=== PATIENT | female | born 1980 | race Caucasian/White ===

== ENCOUNTER 2020-09-01 10:54 | Outpatient (REF) | payer OTHER, SELFPAY | END 2020-09-01 10:55 | disposition home or self-care (01) | LOC: HO.LNP 10:54 | PROVIDERS: Visit Provider Family Medicine | DX: Z20.828 Contact with and (suspected) exposure to other viral communicable diseases (principal) | CPT/HCPCS: U0003 ==

== ENCOUNTER 2021-05-06 18:07 | Outpatient (REF) | payer OTHER, SELFPAY ==
[2021-05-06 18:09] LABS: Urine Cytology See Pathology rpt
[2021-05-06 18:28] LABS: Glucose Urine UA NEG (NEG); Leukocyte Esterase Urine NEG (NEG); Nitrite Urine NEG (NEG); PH 7.5 (5.0-8.0); Urine Blood TRACE (NEG); Urine Ketones NEG (NEG); Urine Protein NEG (NEG-TRACE)
[2021-05-06 18:31] LABS: Appearance Urine CLEAR; Color Urine YELLOW
[2021-05-06 19:01] LABS: Bacteria Urine 1+ /LPF; RBC Urine 0-2 /HPF (0); Squamous Epithelial Cell Urine 1+ /LPF; WBC Urine 0 /HPF (0-4)
== END 2021-05-06 18:08 | disposition home or self-care (01) ==
LOC: HO.LNP 18:07
PROVIDERS: Visit Provider Family Medicine
DX: R31.9 Hematuria, unspecified (principal)
CPT/HCPCS: 81001; 87086; 88112

== ENCOUNTER 2021-06-15 08:40 | Outpatient (REF) | payer OTHER, SELFPAY ==
--- NOTE | ~2021-06-15 | US_ITS ---
EXAMINATION: US RETROPERITONEAL LIMITED (RENAL ONLY) CLINICAL INFORMATION: Hematuria, unspecified. COMPARISON: Abdominal ultrasound of 08/24/2018. CT abdomen and pelvis 07/05/2017. TECHNIQUE: Real-time imaging of the kidneys. FINDINGS: RIGHT KIDNEY: 11.8 x 5.4 x 5.6 cm (SAG x AP x TRV). The kidney is normal in size, contour, and echogenicity. Renal cortical thickness is normal. No calculi or focal parenchymal lesions. No hydronephrosis. LEFT KIDNEY: 11.7 x 6.1 x 5.0 cm (SAG x AP x TRV). The kidney is normal in size, contour, and echogenicity. Renal cortical thickness is normal. No calculi or focal parenchymal lesions. No hydronephrosis. US/US renal BI IMPRESSION: Unremarkable renal ultrasound..
== END 2021-06-15 08:41 | disposition home or self-care (01) ==
LOC: HO.US 08:40
PROVIDERS: PCP Family Medicine; Visit Provider Family Medicine
DX: R31.9 Hematuria, unspecified (principal)
CPT/HCPCS: 76775

== ENCOUNTER 2021-07-08 07:31 | Outpatient (REF) | payer OTHER, SELFPAY ==
--- NOTE | ~2021-07-08 | CT_ITS ---
EXAMINATION: CT ABDOMEN AND PELVIS WITHOUT CONTRAST CLINICAL INFORMATION: Generalized abdominal pain and frequency of micturition. Rule out stones. COMPARISON: Ultrasound of June 15, [address] scan of July 05, 2017 TECHNIQUE: Multidetector volumetric imaging was performed from the superior aspect of the liver through the pubic symphysis. Sagittal and coronal reformatted images were obtained on the technologist's workstation. This CT examination was performed using dose optimization techniques as appropriate, variously including the following: *Automated exposure control *Adjustment of mA and/or kV according to patient size (this includes techniques or standardized protocols for targeted exams where dose is matched to indication/reason for exam; i.e. extremities or head) *Use of iterative reconstruction technique DLP: 607 mGy-cm FINDINGS: LUNG BASES: The visualized lung bases are unremarkable. No pleural or pericardial effusion. LIVER, GALLBLADDER, AND BILIARY TREE: The liver is normal in size, shape, and attenuation. No focal hepatic lesion or biliary ductal dilatation is present. Status post cholecystectomy. PANCREAS: Unremarkable. SPLEEN: Unremarkable. ADRENAL GLANDS: Unremarkable. 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 No hydronephrosis. No hydroureter. No renal or ureteral calculi identified. No suspicious right renal mass seen. 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 BLADDER: Unremarkable. GASTROINTESTINAL TRACT: No dilated loops of large or small bowel are evident. No free air or free fluid is identified. There is diverticulosis of the sigmoid colon without evidence of acute diverticulitis. The appendix is not visualized. No pericolonic inflammatory changes seen. ABDOMINAL WALL: No significant hernia is appreciated. LYMPH NODES: No lymphadenopathy appreciated. VASCULAR: Unremarkable. No abdominal aortic aneurysm. PELVIC VISCERA: Unremarkable. OSSEOUS STRUCTURES: Unremarkable. No suspicious destructive bony lesions. 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 No renal or ureteral calculi identified. Sigmoid diverticulosis without evidence of acute diverticulitis.
== END 2021-07-08 07:32 | disposition home or self-care (01) ==
LOC: HO.CT 07:31
PROVIDERS: PCP Family Medicine; Visit Provider Physician Assistant
DX: R10.84 Generalized abdominal pain (principal); R35.0 Frequency of micturition
CPT/HCPCS: 74176

== ENCOUNTER 2022-12-06 14:22 | Outpatient (REF) | payer OTHER, SELFPAY ==
[2022-12-06 14:51] LABS: Hematocrit 38.8 % (37.0-47.0); Hemoglobin 12.4 g/dl (12.0-16.0); Mean Corpuscular Hemoglobin 26.6 pg (27.0-33.0); Mean Corpuscular Volume 83.1 fL (80.0-98.0); Mean Platelet Volume 9.4 fL (9.4-12.3); Platelet Count 402 X10*3/uL (160-400); Red Blood Count 4.67 X10*6/uL (4.20-5.50); Red Cell Distribution Width 15.9 % (11.0-16.0); White Blood Count 11.2 X10*3/uL (4.8-10.8)
[2022-12-06 15:34] LABS: Alanine Aminotransferase 16 U/L (0-31); Albumin Level 4.3 g/dL (3.5-5.0); Alkaline Phosphatase 59 U/L (39-117); Aspartate Amino Transferase 15 U/L (5-31); Bilirubin Direct < 0.2 mg/dL (0.0-0.5); Bilirubin Total 0.3 mg/dL (0.0-1.0); Lipase 47 U/L (8-78); Total Protein 7.1 g/dL (6.5-8.0)
== END 2022-12-06 14:23 | disposition home or self-care (01) ==
LOC: HO.LAB 14:22
PROVIDERS: PCP Family Medicine; Visit Provider Internal Medicine Gastroenterology
DX: R10.11 Right upper quadrant pain (principal); R74.8 Abnormal levels of other serum enzymes
CPT/HCPCS: 36415; 80076; 83690; 85027

== ENCOUNTER 2022-12-22 07:05 | Outpatient (REF) | payer OTHER, SELFPAY ==
[2022-12-22 11:27] LABS: MANUAL DIFF FLAG NO
[2022-12-22 11:43] LABS: Appearance Urine Cloudy; Color Urine Yellow; Glucose Urine UA Negative (Negative); Leukocyte Esterase Urine Negative (Negative); Nitrite Urine Negative (Negative); Specific Gravity - Urine 1.015 (1.005-1.025); Urine Blood Negative (Negative); Urine Ketones Negative (Negative); Urine Protein Negative (Neg-Trace)
[2022-12-22 11:54] LABS: Basophils Absolute Auto 0.1 X10*3/uL (0.0-0.2); Basophils Percent Auto 0.5 % (0-2); Eosinophils Absolute Auto 0.1 X10*3/uL (0.0-0.4); Eosinophils Percent Auto 0.9 % (0-4); Hematocrit 38.9 % (37.0-47.0); Hemoglobin 12.1 g/dl (12.0-16.0); Imm Gran Abs Auto 0.04 X10*3/uL (0.00-0.03); Imm Gran Pct Auto 0.4 % (0.0-0.4); Lymphocytes Absolute Auto 3.4 X10*3/uL (1.2-4.9); Lymphocytes Percent Auto 33.1 % (20-40); Mean Corpuscular HGB Conc 31.1 g/dl (31.0-35.0); Mean Corpuscular Hemoglobin 26.1 pg (27.0-33.0); Mean Corpuscular Volume 83.8 fL (80.0-98.0); Mean Platelet Volume 9.9 fL (9.4-12.3); Monocytes Absolute Auto 0.6 X10*3/uL (0.1-1.2); Monocytes Percent Auto 5.8 % (2-11); Neutrophils Absolute Auto 6.1 x10*3/uL (2.0-8.3); Neutrophils Percent Auto 59.3 % (45-73); Platelet Count 398 X10*3/uL (160-400); Red Blood Count 4.64 X10*6/uL (4.20-5.50); White Blood Count 10.3 X10*3/uL (4.8-10.8)
[2022-12-22 12:29] LABS: Creatinine Urine 123.88 mg/dL; Microalbumin Urine < 5.0 mg/L
[2022-12-22 12:38] LABS: Alanine Aminotransferase 23 U/L (0-31); Albumin Level 3.7 g/dL (3.5-5.0); Alkaline Phosphatase 55 U/L (39-117); Anion Gap 11 (12-20); Aspartate Amino Transferase 13 U/L (5-31); Bilirubin Total 0.2 mg/dL (0.0-1.0); Blood Urea Nitrogen 11 mg/dL (9-16); Calcium 8.5 mg/dL (8.4-10.2); Carbon Dioxide 24 mmol/L (22-29); Chloride 109 mmol/L (96-108); Cholesterol 212 mg/dL; Estimated Glomerular Filt Rate > 60; Glucose Fasting 85 mg/dL (60-99); Glucose Random 85 mg/dL (60-115); HDL Cholesterol 59 mg/dL; LDL Cholesterol Calculated 135 mg/dl; Lipase 30 U/L (8-78); Potassium 4.2 mmol/L (3.3-5.1); Sodium 140 mmol/L (135-145); Total Protein 6.1 g/dL (6.5-8.0); Triglycerides 93 mg/dL
[2022-12-22 12:46] LABS: Free T4 (Free Thyroxine) 0.83 ng/dL (0.71-1.85); Thyroid Stimulating Hormone 2.12 uIU/mL (0.32-4.0)
[2022-12-24 07:34] LABS: Triiodothyronine T3 Total 86 ng/dL (76-181)
== END 2022-12-22 07:06 | disposition home or self-care (01) ==
LOC: HO.WFDLDS 07:05
PROVIDERS: Visit Provider Family Medicine
DX: Z00.00 Encounter for general adult medical examination without abnormal findings (principal); R74.8 Abnormal levels of other serum enzymes; I10 Essential (primary) hypertension; E03.9 Hypothyroidism, unspecified
CPT/HCPCS: 36415; 80053; 80061; 81003; 82043; 83690; 84439; 84443; 84480; 85025

== ENCOUNTER 2023-04-14 14:29 | Outpatient (AMB) | payer OTHER, SELFPAY ==
[2023-04-14 14:30] VITALS: BP 96/58; PULSE 83; O2SAT 99
--- NOTE | 2023-04-14 14:30 | A.OFFPC_ITS ---
Vital Signs 04/14/23 14:30 Weight 207 lb BP 96/58 L Blood Pressure Location Lt brachial Position Sitting Pulse 83 Pulse Source Pulse Oximeter Pulse Oximetry (%) 99 Oxygen Delivery Method Room Air Intake Visit Reasons: f/u anxiety and chronic conditions Intake Note: Patient is here for follow up on Clonozepam, and other chronic conditions. Allergies nitrofurantoin [From MACROBID] Allergy (Severe, Verified 04/14/23 14:34) THROAT SWELLING, DIFF BREATHING, HIVES fluconazole [From DIFLUCAN] Allergy (Unknown, Verified 04/14/23 14:34) HIVES Medication List - Last Reconciled 04/14/23 by Esteban Horton MD albuterol sulfate 90 mcg/actuation (ProAir HFA) 2 puffs inhalation Q4-6H PRN albuterol sulfate mg inhalation Q4H PRN azelastine 1 spray intranasal BID budesonide-formoterol 160-4.5 mcg/actuation 2 puffs inhalation BID buspirone 5 mg PO BID 30 days citalopram 40 mg PO DAILY clonazepam 0.75 mg (1.5 x 0.5 mg) PO DAILY 30 days levothyroxine 50 mcg PO QAM 90 days montelukast 10 mg PO DAILY 30 days prednisone 20 mg PO DAILY pyridostigmine bromide ER 180 mg PO BID tiotropium bromide 1.25 mcg/actuation (Spiriva Respimat) 2 puffs inhalation DAILY valacyclovir (Valtrex) 500 mg PO Q12H 10 days Tobacco use date assessed: 12/09/22 Dental Screening Dental Screen Date: 04/14/23 Did you have a dental visit in the last 12 months?: Yes Did you have a dental problem in the last 6 months where you did not have access to dental care?: No Was dental information given to patient?: No HPI f/u anxiety and chronic conditions HPI Details 43 y/o female presents to f/u anxiety and chronic conditions. Had increased her clonazepam last office visit. She is also on citalopram 40mg daily. She reports medication regimen has been helping for her anxiety. She does note increased anxiety that coincides with steroid use. Pt reports some dizziness. Pt reports significant fatigue likely secondary to steroid use. 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 Cognitive needs: No Hearing needs: No Vision needs: No Questionnaire Thrive Questionnaire Date Thrive assessed: 03/02/22 NALINI-7 AMB Questionnaire NALINI-7 Date NALINI - 7 assessed: 04/14/23 Feeling nervous, anxious, or on edge: 0 = Not at all Not being able to stop or control worryin = Nearly every day Worrying too much about different things: 3 = Nearly every day Trouble relaxin = Nearly every day Being so restless that it is hard to sit still: 0 = Not at all Becoming easily annoyed or irritable: 3 = Nearly every day Feeling afraid as if something awful might happen: 1 = Several days Total NALINI-7 score (0-4 normal; 5-9 mild; 10-14 moderate; 15-21 severe): 13 Source: Developed by Drs. Arthur Zamora, Margie Gunn, Mello Lewis and colleagues, with an educational kyra from [employer] Review of Systems Const Denies chills, Denies fatigue, Denies fever(s), Denies headache(s) and Denies weakness ENT Denies dizziness and Denies headache(s) Card Denies chest pain, Denies lightheadedness, Denies dyspnea and Denies other (Palpitations) Resp Denies cough, Denies dyspnea, Denies wheezing and Denies other ( shortness of breath) Musc Denies numbness and Denies tingling Neuro Denies dizziness, Denies headache(s), Denies numbness, Denies tingling, Denies paresthesias and Denies weakness Psych Denies anxiety and Denies depression Endo Denies fatigue Aller/Immun Denies wheezing Physical exam (Primary Care) Vital Signs: Last Vital Signs Pulse 83 04/14/23 14:30 BP 96/58 L 04/14/23 14:30 Pulse Ox 99 04/14/23 14:30 Oxygen Delivery Method Room Air 04/14/23 14:30 Tobacco/Smoking Status: Tobacco use Status Tobacco use date assessed 12/09/22 04/14/23 14:42 Patient Tobacco Use Status Former Tobacco user 04/14/23 14:42 Tobacco use type Cigarette 04/14/23 14:42 e-Cigarette/Vaping Use Never Used 04/14/23 14:42 Thrive Assessment: Date of Thrive Assessment Date Thrive assessed 03/02/22 04/14/23 14:42 Const General: no acute distress and well developed Nutritional Appearance: well nourished Orientation/consciousness: patient oriented x3 HENMT Head: Yes normocephalic and Yes atraumatic Eyes General: appearance normal, both eyes and all related structures Pupils: Equal, round and reactive pupils present EOM: EOMs intact bilaterally Resp Effort & Inspection: normal respiratory effort Auscultation: clear to auscultation bilaterally Cardio Rate: regular rate Rhythm: regular rhythm Heart sounds: S1 normal heart sound present, S2 normal heart sound present, no gallops, no murmurs and no rubs Neuro General: patient oriented x3 and gait normal Cranial nerves: Yes Equal, round and reactive pupils present Psych Affect: normal affect Assessment and Plan Assessment & Plan (1) Anxiety: Code(s): F41.9 - Anxiety disorder, unspecified Plan: Some increased anxiety that she notes coincides with steroid use She feels that her citalopram and clonazepam regimen are effective No medication changes; continue current medication regimen for anxiety Jitteriness and anxiety associated with steroid use should resolve when she can discontinue it (2) Shortness of breath: Code(s): R06.02 - Shortness of breath Plan: Continue inhaled medication regimen and currently on prednisone Lungs clear today No changes to her regimen Avoid triggers/allergens (3) Allergies: Code(s): T78.40XA - Allergy, unspecified, initial encounter Plan: Continue using mask outdoors and continue air conditioning; change filter frequently Can try hep a filtration as well (4) Fatigue: Code(s): R53.83 - Other fatigue Plan: Likely secondary to steroid use She is also somewhat dehydrated today; increase hydration Plan Mildly hypotensive today and a little bit orthostatic due to dehydration secondary to steroid use Increase hydration and salt/sodium Coding Level of Care Code Est Pt Level 4 (05205) Diagnoses Anxiety F41.9 Shortness of breath R06.02 Allergies T78.40XA Fatigue R53.83
== END 2023-04-14 15:05 | disposition home or self-care (01) ==
PROVIDERS: PCP Family Medicine; Visit Provider Family Medicine
DX: F41.9 Anxiety disorder, unspecified (principal); R06.02 Shortness of breath; T78.40XA Allergy, unspecified, initial encounter; R53.83 Other fatigue
CPT/HCPCS: 99214

== ENCOUNTER 2023-08-10 08:00 | Outpatient (REF) | payer OTHER, SELFPAY ==
[2023-08-10 11:22] LABS: MANUAL DIFF FLAG NO
[2023-08-10 11:25] LABS: Appearance Urine Clear; Color Urine Yellow; Glucose Urine UA Negative (Negative); Leukocyte Esterase Urine Negative (Negative); Nitrite Urine Negative (Negative); Urine Blood Negative (Negative); Urine Ketones Negative (Negative); Urine Protein Negative (Neg-Trace)
[2023-08-10 11:50] LABS: Alanine Aminotransferase 11 U/L (0-31); Albumin Level 3.8 g/dL (3.5-5.0); Alkaline Phosphatase 69 U/L (39-117); Anion Gap 8 (12-20); Aspartate Amino Transferase 15 U/L (5-31); Bilirubin Total 0.2 mg/dL (0.0-1.0); Blood Urea Nitrogen 8 mg/dL (9-16); Calcium 8.8 mg/dL (8.4-10.2); Carbon Dioxide 28 mmol/L (22-29); Chloride 107 mmol/L (96-108); Cholesterol 201 mg/dL (<200); Estimated Glomerular Filt Rate > 60; Glucose Fasting 103 mg/dL (60-99); HDL Cholesterol 50 mg/dL (>40); LDL Cholesterol Calculated 138 mg/dL (<100); Lipase 26 U/L (8-78); Potassium 4.4 mmol/L (3.3-5.1); Sodium 139 mmol/L (135-145); Total Protein 6.8 g/dL (6.5-8.0); Triglycerides 67 mg/dL (<150)
[2023-08-10 11:51] LABS: Rheumatoid Factor < 13.0 IU/mL (<15.0)
[2023-08-10 12:05] LABS: Free T4 (Free Thyroxine) 0.83 ng/dL (0.71-1.85)
[2023-08-10 12:08] LABS: Basophils Absolute Auto 0.1 X10*3/uL (0.0-0.2); Eosinophils Absolute Auto 0.1 X10*3/uL (0.0-0.4); Eosinophils Percent Auto 2.5 % (0-4); Hematocrit 39.4 % (37.0-47.0); Hemoglobin 12.6 g/dl (12.0-16.0); Lymphocytes Absolute Auto 1.6 X10*3/uL (1.2-4.9); Lymphocytes Percent Auto 30.4 % (20-40); Mean Corpuscular Hemoglobin 26.7 pg (27.0-33.0); Mean Corpuscular Volume 83.5 fL (80.0-98.0); Mean Platelet Volume 10.5 fL (9.4-12.3); Monocytes Absolute Auto 0.3 X10*3/uL (0.1-1.2); Monocytes Percent Auto 6.6 % (2-11); Neutrophils Absolute Auto 3.1 x10*3/uL (2.0-8.3); Neutrophils Percent Auto 59.5 % (45-73); Platelet Count 305 X10*3/uL (160-400); Red Blood Count 4.72 X10*6/uL (4.20-5.50); Red Cell Distribution Width 15.6 % (11.0-16.0); White Blood Count 5.2 X10*3/uL (4.8-10.8)
[2023-08-10 12:15] LABS: Thyroid Stimulating Hormone 2.45 uIU/mL (0.32-4.0)
[2023-08-10 12:25] LABS: Creatinine Urine 48.91 mg/dL; Microalbumin Urine < 5.0 mg/L
[2023-08-10 12:36] LABS: Erythrocyte Sedimentation Rate 11 MM/HR (0-20)
[2023-08-12 04:54] LABS: Triiodothyronine T3 Total 93 ng/dL (76-181)
[2023-08-12 13:08] LABS: CRP High Sensitivity 4.4 mg/L
[2023-08-15 12:57] LABS: Anti Nuclear Antibody Screen NEGATIVE (NEGATIVE)
== END 2023-08-10 08:01 | disposition home or self-care (01) ==
LOC: HO.WFDLDS 08:00
PROVIDERS: Visit Provider Family Medicine
DX: Z00.00 Encounter for general adult medical examination without abnormal findings (principal); E55.9 Vitamin D deficiency, unspecified; R74.8 Abnormal levels of other serum enzymes; D47.09 Other mast cell neoplasms of uncertain behavior; R53.83 Other fatigue; E03.9 Hypothyroidism, unspecified; I10 Essential (primary) hypertension
CPT/HCPCS: 36415; 80053; 80061; 81003; 82043; 82306; 82570; 83690; 84439; 84443; 84480; 85025; 85652; 86038; 86141; 86431

== ENCOUNTER 2023-09-23 14:02 | Outpatient (AMB) | payer OTHER, SELFPAY ==
--- NOTE | 2023-09-23 14:19 | MHC.PC.OV ---
Vital Signs 09/23/23 14:21 Height 5 ft 5 in Weight 195 lb 2 oz BMI 32.5 BP 110/60 Blood Pressure Location Lt brachial Position Sitting Pulse 94 Pulse Source Pulse Oximeter Pulse Oximetry (%) 98 Oxygen Delivery Method Room Air Intake Visit Reasons: CPE with f/u labs and health maintenance Intake Note: Patient is here for her physical today and to follow up on labs. Allergies nitrofurantoin [From MACROBID] Allergy (Severe, Verified 09/23/23 14:23) THROAT SWELLING, DIFF BREATHING, HIVES fluconazole [From DIFLUCAN] Allergy (Unknown, Verified 09/23/23 14:23) HIVES Tobacco use date assessed: 12/09/22 HPI CPE with f/u labs and health maintenance HPI Details 43 y/o female presents for a CPE with f/u labs and health maintenance. Labs were drawn 08/10/23. Reviewed labs with pt. Elevated fasting glucose of 103. TC 201. LDL 138. HDL 50. Triglycerides 67. Urine studies are fine. She states she has been watching the sugars and starches in her diet. 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 Arthur Zamora, Margie Gunn, Mello Lewis and colleagues, with an educational kyra from [employer]. Review of Systems Const Denies chills, Denies fatigue, Denies fever(s), Denies headache(s) and Denies weakness Eyes Denies change in vision ENT Denies dizziness, Denies headache(s), Denies hearing loss, Denies nasal congestion, Denies sinus pain, Denies sinus pressure and Denies sore throat Card Denies chest pain, Denies lightheadedness, Denies dyspnea and Denies other (palpitations) Resp Denies cough, Denies dyspnea and Denies wheezing GI Denies abdominal pain, Denies melena, Denies hematochezia, Denies change in bowel habits, Denies dyspepsia and Denies nausea Denies hematuria and Denies dysuria Musc Denies abnormal gait, Denies myalgias, Denies arthralgias, Denies numbness and Denies tingling Skin/Breast Denies rash, Denies unusual bruising and Denies wounds Neuro Denies abnormal gait, Denies dizziness, Denies headache(s), Denies memory loss, Denies numbness, Denies Sensory deficit (Neuro), Denies tingling and Denies weakness Psych Denies anxiety, Denies depression and Denies memory loss Endo Denies cold intolerance, Denies fatigue, Denies heat intolerance, Denies polydipsia and Denies polyuria Peña/Lymph Denies easy bleeding and Denies easy bruising Aller/Immun Denies wheezing Physical exam (Primary Care) Vital Signs: Last Vital Signs Pulse 94 09/23/23 14:21 BP 110/60 09/23/23 14:21 Pulse Ox 98 09/23/23 14:21 Oxygen Delivery Method Room Air 09/23/23 14:21 BMI result Body Mass Index 32.5 Tobacco/Smoking Status: Tobacco use Status Tobacco use date assessed 12/09/22 09/23/23 14:22 Patient Tobacco Use Status Former Tobacco user 09/23/23 14:22 Tobacco use type Cigarette 09/23/23 14:22 e-Cigarette/Vaping Use Never Used 09/23/23 14:22 Thrive Assessment: Date of Thrive Assessment Date Thrive assessed 03/02/22 09/23/23 14:22 Const General: no acute distress, well developed, alert and awake Nutritional Appearance: well nourished Orientation/consciousness: patient oriented x3 HENMT Head: Yes normocephalic and Yes atraumatic Ears: hearing grossly normal bilaterally and TM's normal bilaterally General nose exam: Normal external nose present and Normal nares present Mouth: Normal oral and palatal mucosa present and moist mucous membranes Teeth and gingiva: dentition normal Throat: Yes posterior oropharynx normal Eyes General: appearance normal, both eyes and all related structures Pupils: Equal, round and reactive pupils present and Pupil accommodation reflex normal EOM: EOMs intact bilaterally Neck Neck: Yes normal visual inspection, Yes no lymphadenopathy and Yes trachea midline Thyroid: Thyroid normal Carotids: no bruits Lymphatic: no lymphadenopathy noted Chest Chest palpation & inspection: normal inspection of the chest Resp Effort & Inspection: normal respiratory effort Auscultation: clear to auscultation bilaterally Cardio Rate: regular rate Rhythm: regular rhythm Heart sounds: S1 normal heart sound present, S2 normal heart sound present, no gallops, no murmurs and no rubs Bruits: no abdominal aortic bruits and no carotid bruits GI Palpation (GI): No Abdominal aortic bruit present, Soft to palpation, nontender, No hepatosplenomegaly present and No Rebound tenderness present Auscultation: normal bowel sounds General: Yes no CVA tenderness Back/Spine/Pelvis Back: no CVA tenderness Cervical Spine: cervical ROM normal and No Cervical spine tenderness Thoracic/Lumbar Spine: thoraco-lumbar ROM normal, No pain with thoraco-lumbar ROM, No thoracic spinal tenderness and No lumbar spinal tenderness Skin Lesions: no lesions Rashes: no rashes Trauma: no lacerations or abrasions Wounds: no wounds Nails: normal Neuro General: patient oriented x3 Cranial nerves: Yes Equal, round and reactive pupils present Cognition (Neuro): normal cognition Gait exam (Neuro): Normal gait present Motor exam (neuro): 5/5 motor strength present throughout Sensory Exam: No Sensory deficit (Neuro) Deep tendon reflexes (DTR's): Right patellar reflex intensity grade: 2+ and Left patellar reflex intensity grade: 2+ Extrem General: Yes normal to inspection and No edema Psych Appearance: grossly normal Affect: normal affect Attitude: cooperative Thought process: Normal thought process present Assessment and Plan Assessment & Plan (1) Adult general medical exam: Code(s): Z00.00 - Encounter for general adult medical examination without abnormal findings Plan: 43-year-old?female?presents?for?complete?physical?exam Encouraged?healthy?diet?with?active?lifestyle?and?plenty?of?exercise (2) Asthma: Code(s): J45.909 - Unspecified asthma, uncomplicated Plan: Mild?wheeze?on?exam.??She?has?not?been?taking?her?controlling?medications. Encouraged?her?to?resume?controller?medications?she?agrees. (3) Elevated fasting glucose: Code(s): R73.01 - Impaired fasting glucose Plan: Mildly?elevated?fasting?blood?sugar. We?can?repeat?this?at?her?next?blood?draw (4) Anxiety: Code(s): F41.9 - Anxiety disorder, unspecified Plan: Patient?notes?improved?control?recently?but?also?increased?stressors.??She?is?taking?citalopram?and?clonazepam?as?prescribed Continue?current?medication Follow-up?with?therapist?as?recommended Will?follow-up?here?in?about?3?months (5) Screening for cervical cancer: Code(s): Z12.4 - Encounter for screening for malignant neoplasm of cervix Plan: Followed?by?safety and health consultant?and?up-to-date. (6) Breast cancer screening by mammogram: Code(s): Z12.31 - Encounter for screening mammogram for malignant neoplasm of breast Plan: Managed?by?her?safety and health consultant?at?[facility].??I?asked?her?to?have?report?forwarded?to?me. (7) Screening for colon cancer: Code(s): Z12.11 - Encounter for screening for malignant neoplasm of colon Plan: Followed?by?Gastroenterology?at?[facility]. Will?request?note Medications: Refilled citalopram 40 mg PO DAILY 90 tabs 2RF clonazepam [facility] verified. Partial refill upon request. 0.75 mg (1.5 x 0.5 mg) PO DAILY 45 tabs 0RF 30 days Coding Level of Care Code Est Pt Level 3 (23820) Est Pt Prev Care 40-64y(44201) Diagnoses Adult general medical exam Z00.00 Asthma J45.909 Elevated fasting glucose R73.01 Anxiety F41.9 Screening for cervical cancer Z12.4 Breast cancer screening by mammogram Z12.31 Screening for colon cancer Z12.11
[2023-09-23 14:21] VITALS: BP 110/60; PULSE 94; O2SAT 98; BMI 32.5
== END 2023-09-23 15:35 | disposition home or self-care (01) ==
PROVIDERS: PCP Family Medicine; Visit Provider Family Medicine
DX: Z00.00 Encounter for general adult medical examination without abnormal findings (principal); J45.909 Unspecified asthma, uncomplicated; R73.01 Impaired fasting glucose; F41.9 Anxiety disorder, unspecified; Z12.4 Encounter for screening for malignant neoplasm of cervix; Z12.31 Encounter for screening mammogram for malignant neoplasm of breast; Z12.11 Encounter for screening for malignant neoplasm of colon
CPT/HCPCS: 99213; 99396

== ENCOUNTER 2023-12-16 11:35 | Outpatient (AMB) | payer OTHER, SELFPAY ==
[2023-12-16 11:38] VITALS: BP 102/58; PULSE 91; O2SAT 98; BMI 32.4
--- NOTE | 2023-12-16 11:38 | A.OFFPC_ITS ---
Vital Signs 12/16/23 11:38 Height 5 ft 5 in Weight 194 lb 8 oz BMI 32.4 BP 102/58 L Pulse 91 Pulse Source Pulse Oximeter Pulse Oximetry (%) 98 Oxygen Delivery Method Room Air Intake Visit Reasons: f/u anxiety, asthma Intake Note: Patient is here to follow up on anxiety and asthma. Allergies nitrofurantoin [From MACROBID] Allergy (Severe, Verified 12/16/23 11:41) THROAT SWELLING, DIFF BREATHING, HIVES fluconazole [From DIFLUCAN] Allergy (Unknown, Verified 12/16/23 11:41) HIVES Medication List - Last Reconciled 12/16/23 by Esteban Horton MD albuterol sulfate mg inhalation Q4H PRN albuterol sulfate 90 mcg/actuation (ProAir HFA) 2 puffs inhalation Q4-6H PRN azelastine 1 spray intranasal BID budesonide-formoterol 160-4.5 mcg/actuation 2 puffs inhalation BID citalopram 40 mg PO DAILY clonazepam 0.75 mg (1.5 x 0.5 mg) PO DAILY 30 days levothyroxine 50 mcg PO QAM 90 days montelukast 10 mg PO DAILY 30 days pyridostigmine bromide ER 180 mg PO BID tiotropium bromide 1.25 mcg/actuation (Spiriva Respimat) 2 puffs inhalation DAILY valacyclovir (Valtrex) 500 mg PO Q12H 10 days Tobacco use date assessed: 12/16/23 Dental Screening Dental Screen Date: 12/16/23 Did you have a dental visit in the last 12 months?: Yes Did you have a dental problem in the last 6 months where you did not have access to dental care?: No Was dental information given to patient?: Patient has dentist HPI f/u anxiety, asthma HPI Details 43 y/o female presents to [facility] PHQ-9 12, NALINI-7 16 today. Pt notes ongoing anxiety but states she is able to work through this. She continues seeing her therapist and taking her medications. She has started walking for exercise. 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 1. Little interest or pleasure in doing things: not at all 2. Feeling down, depressed, or hopeless: not at all 3. Trouble falling or staying asleep, or sleeping too much: nearly every day 4. Feeling tired or having little energy: nearly every day 5. Poor appetite or overeating: nearly every day 6. Feeling bad about yourself - or that you are a failure or have let yourself or your family down: not at all 7. Trouble concentrating on things, such as reading the newspaper or watching television: nearly every day 8. Moving or speaking so slowly that other people could have noticed. Or the opposite - being so fidgety or restless that you have been moving around a lot more than usual: not at all 9. Thoughts that you would be better off or of hurting yourself in some way: not at all Total score: 12 Depression Screening Interpretation: Positive Depression Screening Follow-up: In treatment Depression Screening Done: Yes 58455 - PHQ-9 Billing: Yes Source: Developed by Drs. Arthur Zamora, Margie Gunn, Mello Lewis and colleagues, with an educational kyra from [employer]. Thrive Questionnaire Date Thrive assessed: 12/16/23 I am a: Patient What is your living situation today?: I have a steady place to live Within the past 12 months, did the food you bought not last and you didn't have the money to get more?: Never true Within the past 12 months, did you worry whether your food would run out before you got money to buy more?: Never true Do you have trouble paying for medicines?: No Do you have trouble getting transportation to medical appointments?: No Do you have trouble paying your heating and electricity bill?: No Do you have trouble taking care of your child, family member or friend?: No Do you have trouble with day-to-day activities such as bathing, preparing meals, shopping, managing finances, etc.?: Yes Are you currently unemployed and looking for a job?: No Are you interested in more education?: No THRIVE Score: 0 AUDIT C Alcohol Use Questionnaire (AUDIT-C) 1. How often do you have a drink containing alcohol?: Never 3. How often do you have six or more drinks on one occasion?: Never Total Score: 0 NALINI-7 AMB Questionnaire NALINI-7 Date NALINI - 7 assessed: 12/16/23 Feeling nervous, anxious, or on edge: 3 = Nearly every day Not being able to stop or control worryin = Nearly every day Worrying too much about different things: 3 = Nearly every day Trouble relaxin = Nearly every day Being so restless that it is hard to sit still: 2 = More than half the days Becoming easily annoyed or irritable: 2 = More than half the days Feeling afraid as if something awful might happen: 0 = Not at all Total NALINI-7 score (0-4 normal; 5-9 mild; 10-14 moderate; 15-21 severe): 16 Source: Developed by Drs. Arthur Zamora, Margie Gunn, Mello Lewis and colleagues, with an educational kyra from [employer]. NALINI-7 Assessment Billing NALINI-7 Assessment Tool: NALINI-7 Assessment 33274 ACT Questionnaire In the past 4 weeks, how much of the time did your asthma keep you from getting as much done at work, school or at home?: Some of the time During the past 4 weeks, how often have you had shortness of breath?: Once a day During the past 4 weeks, how often did your asthma symptoms wake you up at night or earlier than usual in the morning?: 2-3 nights a week During the past 4 weeks, how often have you had to use your rescue inhaler or nebulizer medication?: More than 3 times per day (daily) How would you rate your asthma control during the past 4 weeks?: Somewhat controlled Score: 11 Review of Systems Const Denies chills, Denies fatigue, Denies fever(s), Denies headache(s) and Denies weakness ENT Denies dizziness and Denies headache(s) Card Denies dyspnea Resp Denies cough, Denies dyspnea, Denies wheezing and Denies other (shortness of breath) Musc Denies numbness and Denies tingling Neuro Denies dizziness, Denies headache(s), Denies numbness, Denies tingling and Denies weakness Psych Reports anxiety and Reports depression Endo Denies fatigue Aller/Immun Denies wheezing Physical exam (Primary Care) Vital Signs: Last Vital Signs Pulse 91 12/16/23 11:38 BP 102/58 L 12/16/23 11:38 Pulse Ox 98 12/16/23 11:38 Oxygen Delivery Method Room Air 12/16/23 11:38 BMI result Body Mass Index 32.4 Tobacco/Smoking Status: Tobacco use Status Tobacco use date assessed 12/16/23 12/16/23 12:48 Patient Tobacco Use Status Former Tobacco user 12/16/23 12:48 Tobacco use type Cigarette 12/16/23 12:48 e-Cigarette/Vaping Use Never Used 12/16/23 12:48 PHQ-9: PHQ-9 Score PHQ-9: Total score 12 12/16/23 12:48 Depression Screening Interpretation: Positive Depression Screening Follow-up: In treatment Thrive Assessment: Date of Thrive Assessment Date Thrive assessed 12/16/23 12/16/23 12:48 Const General: well developed; No acute distress Nutritional Appearance: well nourished Orientation/consciousness: patient oriented [facility]3 [facility] Head: Yes normocephalic and Yes atraumatic Eyes General: appearance normal, both eyes and all related structures Pupils: Equal, round and reactive pupils present EOM: EOMs intact bilaterally Resp Effort & Inspection: normal respiratory effort Auscultation: clear to auscultation bilaterally Cardio Rate: regular rate Rhythm: regular rhythm Heart sounds: S1 normal heart sound present, S2 normal heart sound present, no gallops, no murmurs and no rubs Neuro General: patient oriented x3 and gait normal Cranial nerves: Yes Equal, round and reactive pupils present Psych Affect: normal affect Assessment and Plan Assessment & Plan (1) Depression with anxiety: Code(s): F41.8 - Other specified anxiety disorders Plan: Increased?stressors?due?to?inability?to?work?and?difficulty?with?finances. Offered?to?have?nurse?navigator?look?in?to?available?services?but?she?says?she?i s?already?doing?this?with?her?therapist. She?declined?any?medication?changes Continue?current?medications?and?follow-up?with?therapist (2) Asthma: Code(s): J45.909 - Unspecified asthma, uncomplicated Plan: Lungs?are?much?improved?since?last?visit. She?had?been?given?couple?of?rounds?of?prednisone?by?her?orthopaedic physician assistant Continue?controller?medication?and?use?albuterol?as?needed Medications: Refilled clonazepam [facility] verified. Partial refill upon request. 0.75 mg (1.5 x 0.5 mg) PO DAILY 45 tabs 0RF 30 days citalopram 40 mg PO DAILY 90 tabs 2RF Discontinued buspirone Discontinued Reason: Doctor's Order 5 mg PO BID 30 days 60 tabs 0RF Coding Level of Care Code Est Pt Level 3 (62926) Diagnoses Depression with anxiety F41.8 Asthma J45.909 Additional Codes NALINI-7 Assessment Billing - NALINI-7 Assessment Tool: NALINI-7 Assessment 21732 ([id number])
== END 2023-12-16 13:03 | disposition home or self-care (01) ==
PROVIDERS: PCP Family Medicine; Visit Provider Family Medicine
DX: J45.909 Unspecified asthma, uncomplicated (principal); F41.8 Other specified anxiety disorders
CPT/HCPCS: 99213

== ENCOUNTER 2024-04-26 12:31 | Outpatient (AMB) | payer OTHER, SELFPAY ==
--- NOTE | 2024-04-26 12:37 | MHC.PC.OV ---
Vital Signs 04/26/24 12:45 Height 5 ft 5 in Weight 182 lb BMI 30.3 BP 100/66 Blood Pressure Location Lt brachial Position Sitting Pulse 78 Pulse Source Pulse Oximeter Pulse Oximetry (%) 96 Oxygen Delivery Method Room Air Intake Visit Reasons: eval for possible listeria Intake Note: Patient started feeling sick- patient reports she had turkey from the deli and thinks it may be listeria due to a recall. Patient reports feeling nauseous, vomiting, and diarrhea. Technician Automated Equipment Required: No Accompanied by: Daughter Allergies nitrofurantoin [From MACROBID] Allergy (Severe, Verified 04/26/24 12:51) THROAT SWELLING, DIFF BREATHING, HIVES fluconazole [From DIFLUCAN] Allergy (Unknown, Verified 04/26/24 12:51) HIVES Tobacco use date assessed: 12/16/23 Dental Screening Dental Screen Date: 12/16/23 HPI eval for possible listeria HPI Details 44 y/o female presents today with complaints of nausea, vomiting and diarrhea. She reports she had turkey from a deli and questions listeria due to a recall. Has been using protein shakes and liquid diet. She notes she is feeling improved. She reports significant anxiety. 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 Arthur Zamora, Margie Gunn, Mello Lewis and colleagues, with an educational kyra from [employer]. Review of Systems Const Denies chills, Denies fatigue, Denies fever(s), Denies headache(s) and Denies weakness ENT Denies dizziness and Denies headache(s) Card Denies dyspnea Resp Denies cough, Denies dyspnea, Denies wheezing and Denies other (shortness of breath) GI Reports diarrhea, Reports nausea and Reports vomiting Musc Denies numbness and Denies tingling Neuro Denies dizziness, Denies headache(s), Denies numbness, Denies tingling and Denies weakness Psych Reports anxiety Endo Denies fatigue Aller/Immun Denies wheezing Physical exam (Primary Care) Vital Signs: Last Vital Signs Pulse 78 04/26/24 12:45 BP 100/66 04/26/24 12:45 Pulse Ox 96 04/26/24 12:45 Oxygen Delivery Method Room Air 04/26/24 12:45 BMI result Body Mass Index 30.3 Tobacco/Smoking Status: Tobacco use Status Tobacco use date assessed 12/16/23 04/26/24 12:38 Patient Tobacco Use Status Former Tobacco user 04/26/24 12:38 Tobacco use type Cigarette 04/26/24 12:38 e-Cigarette/Vaping Use Never Used 04/26/24 12:38 Thrive Assessment: Date of Thrive Assessment Date Thrive assessed 12/16/23 04/26/24 12:38 Const General: well developed; No acute distress Nutritional Appearance: well nourished Orientation/consciousness: patient oriented x3 [facility] Head: Yes normocephalic and Yes atraumatic Eyes General: appearance normal, both eyes and all related structures Pupils: Equal, round and reactive pupils present EOM: EOMs intact bilaterally Resp Effort & Inspection: normal respiratory effort Neuro General: patient oriented x3 and gait normal Cranial nerves: Yes Equal, round and reactive pupils present Psych Affect: normal affect Assessment and Plan Assessment & Plan (1) Gastroenteritis: Code(s): K52.9 - Noninfective gastroenteritis and colitis, unspecified Plan: Had?advised?clear?liquid?diet?yesterday?which?made?patient?feel?better.??She?had?a?protein?shake?today?and?feels?a?little?worse?again. Advised?her?to?continue?high?fluid?intake And?to?advance?her?diet?as?tolerated?with?simple?to?eat?foods?such?as?crackers?and?toast?and?then?advancing?to?soup?broths Avoid?hard?to?digest?foods?including?dairy,?meats?and?protein?shakes.??Avoid?spicy?food. She?can?add?these?foods?back?in?when?she?is?feeling?all?better. Wash?hands?frequently If?not?improving?or?worsens,?I?have?ordered?labs?and?stool?studies?which?she?can?get?done. (2) Anxiety: Code(s): F41.9 - Anxiety disorder, unspecified Plan: Patient?is?on?citalopram?and?clonazepam?already?and?still?having?significant?anxiety She?has?an?appointment?with?a?psych?med?provider?but?is?not?for?quite?some?time Will?have?her?trial?Abilify?2?mg?daily?along?with?the?above?medications?and?follow-up?in?1?month.??She?can?discontinue?this?if?is?causing?any?problems. Orders: Orders Complete Blood Count Auto Diff Today R19.7 - Diarrhea, unspecified, Z00.00 - Encounter for general adult medical examination without abnormal findings Routine Culture w Gram Stain Today R19.7 - Diarrhea, unspecified GI Panel Today R19.7 - Diarrhea, unspecified Comprehensive Met. Panel Today R19.7 - Diarrhea, unspecified Medications: New aripiprazole (Abilify) 2 mg PO BEDTIME 30 days 30 tabs 1RF Coding Level of Care Code Est Pt Level 3 (31891) Diagnoses Gastroenteritis K52.9 Anxiety F41.9
[2024-04-26 12:45] VITALS: BP 100/66; PULSE 78; O2SAT 96; BMI 30.3
== END 2024-04-26 14:28 | disposition home or self-care (01) ==
PROVIDERS: PCP Family Medicine; Visit Provider Family Medicine
DX: K52.9 Noninfective gastroenteritis and colitis, unspecified (principal); F41.9 Anxiety disorder, unspecified
CPT/HCPCS: 99213

== ENCOUNTER 2024-06-13 10:50 | Outpatient (AMB) | payer OTHER, SELFPAY ==
--- OUTSIDE RECORDS SUMMARY | 2024-06-13 10:52 | XMS_ITS ---
Author Organization [facility] Address [address] [place] [address] Care Team Providers Care Glue Mill Operator Name Role Phone Esteban Horton Primary Care Provider Unavailab Armando Nolasco Jr [phone] REASON FOR VISIT new insurance? Encounters Encounter Location Date Provider Diagnosis [facility] [address] [place] [address] 04/21/2023 Armando Simon Jr PLAN OF TREATMENT No Information
--- OUTSIDE RECORDS SUMMARY | 2024-06-13 10:52 | XMS_ITS | Patient Health Record ---
Author Organization [facility] Address [address] [place] [address] Care Team Providers Care Intranet Support Name Role Phone Esteban Horton Primary Care Provider Armando Kimbrough Jr Unavailable [phone] ALLERGIES Allergen (clinical drug ingredient) Drug/Non Drug Allergy documented on EMR Reaction Allergy Type Onset Date Status Alcohol Unknown Drug Allergy Active nitrofurantoin, macrocrystals / nitrofurantoin, monohydrate Macrobid Unknown Drug Allergy Active fluconazole Diflucan Unknown Drug Allergy Activ e REASON FOR REFERRAL No Information MEDICATIONS Medication SIG (Take, Route, Frequency, Duration) Notes Start Date End Date Status Pantoprazole Sodium 20 MG 1 tablet Orall y Once a day for 30 day(s) 12/08/2022 Active Xolair 150 MG Subcutaneous Act laurence Symbicort 80-4.5 MCG/ACT 2 puffs Inhalat ion Once a day Active Albuterol Sulfate HFA 108 (90 Base) MCG/ACT 2 puffs as needed Inhalation every 4 hrs Active Flovent HFA 44 MCG/ACT 2 puffs Inhalatio n Twice a day Active Synthroid 50 MCG 1 tablet on an empty stomach in the morning Orally Once a day Active Spiriva Respimat 2.5 MCG/ACT 2 puffs Inhalation Once a day Active pyRIDostigmine [place] ER 180 MG 1 tablet Orally Once a day for 30 day(s) Active Levothyroxine Sodium 50 MCG 1 tablet in the morning on an empty stomach Orally Once a day for 30 day(s) Active Citalopram Hydrobromide 40 MG 1 tablet Orally Once a day Active IMMUNIZATIONS Vaccine Route Administration Date Status Comme nts Influenza Unknown 07/10/2018 Administered Influenza Unknown 08/10/2022 Administered SOCIAL HISTORY Tobacco Use: Social History Observation Description Date Details (start date - stop date) Former Smoker NA - NA Sex Assigned At : Social History Observation Description Sex Assigned At Unknown Tobacco Use/Smoking Question Answer Notes Patient is a former smoker Alcohol Screen Question Answer Notes Did you have a drink contain ing alcohol in the past year? Yes How often did you have a dri nk containing alcohol in the past year? 2 to 4 times a month (2 points) How many drinks did you have on a typical day when you were drinking in the past year? 1 or 2 drinks (0 point) Points 2 Interpretation Negative PROBLEMS Problem Type ICD Code Onset Dates Problem Status W/U Status Risk SNOMED Code Notes Problem Colitis (K52.9) Active confirmed 432692 04 Problem Rectal bleeding (K62.5) Active confirmed 18873446 Problem Diverticulitis (K57.92) Active confirmed 597856434 Problem Epigastric pain (R10.13) Active confirmed 34444109 Problem Right upper quadrant abdominal pain (R10.11) Active confirmed 970757832 Problem Elevated lipase (R74.8) Active confirmed 546248000 PLAN OF TREATMENT Pending Test Test Name Order Date LIVER PROFILE 12/06/2022 LIPASE 12/06/2022 CBC w/o DIFF 12/06/2022 Future Test Test Name Order Date COLONOSCOPY 07/07/2017 Insurance Providers Payer Name Payer Address Payer Phone Subscriber Number Group Number Insured Name Patient Relationship to Insured Coverage Start Date Coverage End Date [facility] [address] [place] [phone] [id number] JAKE GODWIN Self - patient is the insured MEDICAL (GENERAL) HISTORY Medical History History ICD Code asthma Colonoscopy 09/09/17 normal including bi opsies Autoimmune disorder, mast cell related Elevated lipase Breathing problems Surgical History Surgery Date(Month/Year) tonsillectomy 1998 cholecystectomy 2000 appendectomy 2016
--- OUTSIDE RECORDS SUMMARY | 2024-06-13 10:52 | XMS_ITS ---
Author Organization [facility] Address [address] [place] [address] Care Team Providers Care Milling Planer Operator Name Role Phone Esteban Horton Primary Care Provider Unavailab Armando Nolasco Jr REASON FOR VISIT pancreatitis Encounters Encounter Location Date Provider Diagnosis [facility] [address] [place] [address] 06/08/2023 Armando Simon Jr PLAN OF TREATMENT No Information
--- NOTE | 2024-06-13 12:13 | MHC.OFFWIV ---
Intake Vital Signs 06/13/24 12:17 Height 5 ft 5 in Weight 180 lb BMI 30.0 BP 102/66 Blood Pressure Location Rt brachial Position Sitting Respiration 14 Pulse 96 Pulse Source Pulse Oximeter Pulse Oximetry (%) 100 Oxygen Delivery Method Room Air Intake Visit Reasons: est/ back pain/possible budging disk Intake Note: patient complaining of nauseas, lower back pain and right leg pain x days and hard to walk and move around. pt aslo gas been using lidocaine patches with no relieve. Patient Tobacco Use Status: Former Tobacco user Allergies nitrofurantoin [From MACROBID] Allergy (Severe, Verified 06/13/24 12:29) THROAT SWELLING, DIFF BREATHING, HIVES fluconazole [From DIFLUCAN] Allergy (Unknown, Verified 06/13/24 12:29) HIVES Medication List - Last Reconciled 06/13/24 by Rosa Haney, [facility]- albuterol sulfate mg inhalation Q4H PRN albuterol sulfate 90 mcg/actuation 2 puffs inhalation Q4-6H PRN aripiprazole (Abilify) 2 mg PO BEDTIME 30 days azelastine 1 spray intranasal BID budesonide-formoterol 160-4.5 mcg/actuation 2 puffs inhalation BID citalopram 40 mg PO DAILY clonazepam 1 mg (2 x 0.5 mg) PO DAILY 30 days levothyroxine 50 mcg PO QAM 90 days montelukast 10 mg PO DAILY 30 days pyridostigmine bromide ER 180 mg PO BID tiotropium bromide 1.25 mcg/actuation (Spiriva Respimat) 2 puffs inhalation DAILY valacyclovir (Valtrex) 500 mg PO Q12H 10 days Do you need a note to return to daycare/school/sports/work: No HPI HPI Comments History of Present Illness Details 44 y/o F with NALINI, MDD, mast cell activation syndrome, hyperlipidemia, asthma, cognitive dysfunction likely secondary to POTS and mast cell activation syndrome [facility] History of appendectomy History of cholecystectomy Hx of tonsillectomy Here today with her with a chief complaint of back pain. She reports that on Tuesday, she went to get up off the toilet and reached behind her. She instantly felt pain in her right low back. The pain radiates into her right buttocks and down to her anterior and posterior upper thigh. + spasm over the right low back. She has been taking Motrin and Tylenol every 8 hours which seems to help. She did have a leftover dose of Toradol which she tried and provided no relief. She did find 20 mg of prednisone at home which she took which also did seem to help. She does report a longstanding has in her lumbar area which developed about 20 years ago. Reports that in her day-to-day she is fine however she has flares about once per year. She denies any red flag symptoms associated with back pain. Exam: Awake, alert, accompanied by Mom PETER, EOMI Neck FROM No spinal tenderness. DOWELL x 4. Pain over R SI w/ palpation, shortening of Right leg, noted. SLR negative bilat. Neurovasc intact. No edema. I was able to manually manipulate RLE with immediate improvement in sx Plan: Medrol, muscle relaxer, home exercises RTO education provided. This note is constructed using voice recognition software. While every effort has been made to ensure accuracy in chemical production technician, still errors may have been included Sometimes, these errors may affect the content or meaning of the given sentence . Total time spent caring for the patient today was 30 minutes. 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 Medications: New methylprednisolone (Medrol (Victor M)) PO PER PKG DIR 21 ea 0RF cyclobenzaprine 10 mg PO Q8H 5 days PRN 15 tabs 0RF muscle spasm Coding Level of Care Code Est Pt Level 4 (37648) Diagnoses Sacroiliac joint dysfunction of right side M53.3
[2024-06-13 12:17] VITALS: BP 102/66; PULSE 96; RESP 14; O2SAT 100
== END 2024-06-13 12:42 | disposition home or self-care (01) ==
PROVIDERS: PCP Family Medicine; Visit Provider Nurse Practitioner Family
DX: M53.3 Sacrococcygeal disorders, not elsewhere classified (principal)

== ENCOUNTER → 2024-06-13 10:50 | Outpatient (BNVA) | payer OTHER, SELFPAY | PROVIDERS: PCP Family Medicine | DX: M53.3 Sacrococcygeal disorders, not elsewhere classified (principal) | CPT/HCPCS: 99212 ==

== ENCOUNTER 2024-06-22 09:17 | Outpatient (AMB) | payer OTHER, SELFPAY ==
--- NOTE | 2024-06-22 09:19 | A.OFFPC_ITS ---
Vital Signs 06/22/24 09:22 06/22/24 10:25 Height 5 ft 5 in Weight 188 lb BMI 31.3 BP 118/66 Blood Pressure Location Rt brachial Position Sitting Respiration 13 Pulse 101 H 88 Pulse Source Pulse Oximeter Auscultation Pulse Oximetry (%) 98 Oxygen Delivery Method Simple Mask Intake Visit Reasons: Transfer of CARE from [facility] Intake Note: To establish care and follow up on back. Allergies nitrofurantoin [From MACROBID] Allergy (Severe, Verified 06/22/24 09:45) THROAT SWELLING, DIFF BREATHING, HIVES fluconazole [From DIFLUCAN] Allergy (Unknown, Verified 06/22/24 09:45) HIVES Medication List - Last Reconciled 06/22/24 by Rosa Haney, [facility]- albuterol sulfate mg inhalation Q4H PRN albuterol sulfate 90 mcg/actuation 2 puffs inhalation Q4-6H PRN azelastine 1 spray intranasal BID budesonide-formoterol 160-4.5 mcg/actuation 2 puffs inhalation BID citalopram 40 mg PO DAILY clonazepam 1 mg (2 x 0.5 mg) PO DAILY 30 days levothyroxine 50 mcg PO QAM 90 days montelukast 10 mg PO DAILY 30 days omalizumab (Xolair) mg subcut pyridostigmine bromide ER 180 mg PO TID tiotropium bromide 1.25 mcg/actuation (Spiriva Respimat) 2 puffs inhalation DAILY valacyclovir (Valtrex) 500 mg PO Q12H 10 days Tobacco use date assessed: 12/16/23 Dental Screening Dental Screen Date: 12/16/23 HPI HPI Comments History of Present Illness Details 44 y/o F with NALINI, MDD, mast cell activ ation syndrome, hyperlipidemia, asthma, cognitive dysfunction likely secondary to POTS and mast cell activation syndrome MCAS, pancreatitis (med induced), obesity History of appendectomy History of cholecystectomy Hx of tonsillectomy Health Maintenance: Pap UTD Colon due for colon, referral placed today to [facility] GI DEXA > 2 years ago, last one at [facility] osteopenia. Order placed today Mammo overdue, order placed today Tdap 08/17/13, COVID vaccines contraindicated given MAST cell. Specialists: Dr Nation [facility] - treats asthma and mast cell locally Dr Oseas Khanna [facility] Autonomic Dr Jeffry Vasquez Mast Cell Act [facility] TELEPHONE OPERATOR RECEPTIONIST Pulm Dr [place]ura, michaelle PRN Endocrine [facility], no longer ff'd Counselor & Prescriber Neuropsych evaluation from [facility] neurology in October 2023. Here today to establish care and follow up on her right low back pain. Since last office visit, her right low back pain has improved. She was treated with methylprednisolone and Flexeril after manual manipulation. She still does have some mild right hip pain. Is not performing the at-home exercises. Walking cautiously. States that she is very worried about having avascular necrosis due to a history of long-term prednisone use for her mast cell activation. She is not currently active with a gate clerk or an orthopedic doctor. She reports that her last bone density was done over 2 years ago showing osteopenia. She was supposed to be taking a calcium supplement however admits that it is too big and therefore is not taking 1. She is interested in a referral to physical therapy In other regards, she was routinely follow up by her care team, however her specialists no longer take [facility]. She is having a hard time navigator in the healthcare system and she is looking for some help and support. Suffers from cognitive decline status post mast cell activation flare after 3rd COVID booster. At this point, patient declines all vaccinations. Mood is stable. Tolerating compliant of medications. Active without side counselor and prescriber. Exam Awake alert oriented, no acute distress Regular rate and rhythm Lung sounds clear to auscultation bilat No spinal or paraspinal tenderness, moves all extremities x4, neurovascularly intact Mild Pain with adduction and abduction of the right hip, no pain when her leg is pulled towards her chest Mood and affect appropriate Plan: Check Xray of hip/pelvis and SI joints today. Results pending at this time. I will send results to the portal once avail and refer prn Physical therapy referral Recommended for her to use Viactiv [id number] calcium plus vitamin-D chews DEXA and mammogram ordered as they are both overdue Refer to [facility] to help access care No vaccines given MAST cell Routine screening labs to be done 1 week before the next appointment which will be your complete physical exam 09/24/2024 Return to the office sooner as needed This note is constructed using voice recognition software. While every effort has been made to ensure accuracy in wound nurse, still errors may have been i ncluded Sometimes, these errors may affect the content or meaning of the given sentence . Total time spent caring for the patient today was 45 minutes. This includes time spent before the visit reviewing the chart, time spent during the visit, and time spent after the visit on documentation [facility] Medical History (Updated 06/22/24 @ 15:31 by Rosa Haney [facility]) Allergies Pancreatitis Surgical History History of cholecystectomy History of appendectomy Hx of tonsillectomy Social History Housing: Apartment Patient Tobacco Use Status: Former Tobacco user Tobacco use type: Cigarette e-Cigarette/Vaping Use: Never Used Second Hand Smoke Exposure: No service: No Current occupational status: employed 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 1. Little interest or pleasure in doing things: not at all 2. Feeling down, depressed, or hopeless: not at all 3. Trouble falling or staying asleep, or sleeping too much: nearly every day 4. Feeling tired or having little energy: nearly every day 5. Poor appetite or overeating: not at all 6. Feeling bad about yourself - or that you are a failure or have let yourself or your family down: not at all 7. Trouble concentrating on things, such as reading the newspaper or watching television: nearly every day 8. Moving or speaking so slowly that other people could have noticed. Or the opposite - being so fidgety or restless that you have been moving around a lot more than usual: not at all 9. Thoughts that you would be better off or of hurting yourself in some way: not at all Total score: 9 Depression Screening Interpretation: Positive Depression Screening Follow-up: Existing condition and In treatment Depression Screening Done: Yes 21334 - PHQ-9 Billing: Yes Source: Developed by Drs. Arthur Zamora, Margie Gunn, Mello Lewis and colleagues, with an educational kyra from [employer]. Thrive Questionnaire Date Thrive assessed: 12/16/23 AUDIT C Alcohol Use Questionnaire (AUDIT-C) 1. How often do you have a drink containing alcohol?: Never 3. How often do you have six or more drinks on one occasion?: Never Total Score: 0 Score Reviewed/Action Taken: Yes NALINI-7 AMB Questionnaire NALINI-7 Date NALINI - 7 assessed: 06/22/24 Feeling nervous, anxious, or on edge: 3 = Nearly every day Not being able to stop or control worryin = Nearly every day Worrying too much about different things: 3 = Nearly every day Trouble relaxin = Nearly every day Being so restless that it is hard to sit still: 3 = Nearly every day Becoming easily annoyed or irritable: 3 = Nearly every day Feeling afraid as if something awful might happen: 1 = Several days Total NALINI-7 score (0-4 normal; 5-9 mild; 10-14 moderate; 15-21 severe): 19 Source: Developed by Drs. Arthur Zamora, Margie Gunn, Mello Lewis and colleagues, with an educational kyra from [employer]. NALINI-7 Assessment Billing NALINI-7 Assessment Tool: NALINI-7 Assessment 07144 ACT Questionnaire In the past 4 weeks, how much of the time did your asthma keep you from getting as much done at work, school or at home?: A little of the time During the past 4 weeks, how often have you had shortness of breath?: 1-2 times a week During the past 4 weeks, how often did your asthma symptoms wake you up at night or earlier than usual in the morning?: Once or twice per week During the past 4 weeks, how often have you had to use your rescue inhaler or nebulizer medication?: Once a week or less How would you rate your asthma control during the past 4 weeks?: Well controlled ACT Interpretation: Negative Score: 20 Physical exam (Primary Care) Vital Signs: Last Vital Signs Pulse 88 06/22/24 10:25 Resp 13 06/22/24 09:22 BP 118/66 06/22/24 09:22 Pulse Ox 98 06/22/24 09:22 Oxygen Delivery Method Simple Mask 06/22/24 09:22 BMI result Body Mass Index 31.3 BMI Assessment/Plan discussion: High BMI High, discussed plan: lifestyle Tobacco/Smoking Status: Tobacco use Status Tobacco use date assessed 12/16/23 06/22/24 09:20 Patient Tobacco Use Status Former Tobacco user 06/22/24 09:20 Tobacco use type Cigarette 06/22/24 09:20 e-Cigarette/Vaping Use Never Used 06/22/24 09:20 PHQ-9: PHQ-9 Score PHQ-9: Total score 9 06/22/24 10:23 Depression Screening Interpretation: Positive Depression Screening Follow-up: Existing condition and In treatment Thrive Assessment: Date of Thrive Assessment Date Thrive assessed 12/16/23 06/22/24 09:20 Assessment and Plan Assessment & Plan (1) SI (sacroiliac) joint dysfunction: Code(s): M53.3 - Sacrococcygeal disorders, not elsewhere classified (2) long term care phlebotomist (current) use of systemic steroids: Code(s): Z79.52 - long term care phlebotomist (current) use of systemic steroids (3) Mast cell disease: Code(s): D47.09 - Other mast cell neoplasms of uncertain behavior (4) Screening for colon cancer: Code(s): Z12.11 - Encounter for screening for malignant neoplasm of colon (5) Screening for breast cancer: Code(s): Z12.39 - Encounter for other screening for malignant neoplasm of breast Qualifiers: Breast cancer screening modality: mammogram Qualified Code(s): Z12.31 - Encounter for screening mammogram for malignant neoplasm of breast (6) Osteopenia: Code(s): M85.80 - Other specified disorders of bone density and structure, unspecified site Qualifiers: Osteopenia location: unspecified Qualified Code(s): M85.80 - Other specified disorders of bone density and structure, unspecified site (7) Laboratory examination ordered as part of a routine general medical examination: Code(s): Z00.00 - Encounter for general adult medical examination without abnormal findings (8) NALINI (generalized anxiety disorder): Code(s): F41.1 - Generalized anxiety disorder (9) MDD (major depressive disorder), recurrent episode: Code(s): F33.9 - Major depressive disorder, recurrent, unspecified Qualifiers: Major depression episode severity: mild Qualified Code(s): F33.0 - Major depressive disorder, recurrent, mild (10) Class 1 obesity with alveolar hypoventilation and body mass index (BMI) of 31.0 to 31.9 in adult: Comment: with HLD and Mast cell activation Code(s): E66.2 - Morbid (severe) obesity with alveolar hypoventilation; Z68.31 - Body mass index [BMI] 31.0-31.9, adult Qualifiers: Serious obesity comorbidity presence: with serious comorbidity Qualified Code(s): E66.2 - Morbid (severe) obesity with alveolar hypoventilation; Z68.31 - Body mass index [BMI] 31.0-31.9, adult (11) Hyperlipidemia: Code(s): E78.5 - Hyperlipidemia, unspecified Qualifiers: Hyperlipidemia type: moderate mixed hyperlipidemia not requiring statin therapy Qualified Code(s): E78.2 - Mixed hyperlipidemia (12) Vaccine contraindicated: Code(s): Z28.09 - Immunization not carried out because of other contraindication (13) Mild cognitive impairment with memory loss: Comment: s/t MAST cell, Neuropsych consult [facility] 10/2023 Code(s): G31.84 - Mild cognitive impairment of uncertain or unknown etiology Orders: Orders XR sacroiliac joint min 3V Today M25.551 - Pain in right hip, M53.3 - Sacrococcygeal disorders, not elsewhere classified, Z79.52 - nursing home (current) use of systemic steroids MM tomosynthesis screening BI Today Z12.31 - Encounter for screening mammogram for malignant neoplasm of breast Complete Blood Count no Diff Today M85.80 - Other specified disorders of bone density and structure, unspecified site, Z00.00 - Encounter for general adult medical examination without abnormal findings Hemoglobin A1c Today M85.80 - Other specified disorders of bone density and structure, unspecified site, Z00.00 - Encounter for general adult medical examination without abnormal findings Lipid Panel Today M85.80 - Other specified disorders of bone density and structure, unspecified site, Z00.00 - Encounter for general adult medical examination without abnormal findings Vitamin D 25-OH Total Today M85.80 - Other specified disorders of bone density and structure, unspecified site, Z00.00 - Encounter for general adult medical examination without abnormal findings TSH reflex Free T4 Today M85.80 - Other specified disorders of bone density and structure, unspecified site, Z00.00 - Encounter for general adult medical examination without abnormal findings Microalbumin, Random (w Creat) Today M85.80 - Other specified disorders of bone density and structure, unspecified site, Z00.00 - Encounter for general adult medical examination without abnormal findings PT Evaluation and Treatment Today M53.3 - Sacrococcygeal disorders, not elsewhere classified XR hip RT w PEL1V Today M25.551 - Pain in right hip, M53.3 - Sacrococcygeal disorders, not elsewhere classified, Z79.52 - long term care phlebotomist (current) use of sys temic steroids XR DEXA axial skeleton Today M85.80 - Other specified disorders of bone density and structure, unspecified site, Z12.39 - Encounter for other screening for ma lignant neoplasm of breast, Z79.52 - nursing home (current) use of systemic steroids Comprehensive [place]. Panel Fast Today M85.80 - Other specified disorders of bone density and structure, unspecified site, Z00.00 - Encounter for general adult medical examination without abnormal findings Vitamin B12 and Folate Today M85.80 - Other specified disorders of bone density and structure, unspecified site, Z00.00 - Encounter for general adult medical examination without abnormal findings Referrals Gastroenterology Referral Z12.11 - Encounter for screening for malignant neoplasm of colon Nurse Navigator Referral D47.09 - Other mast cell neoplasms of uncertain behavior Review Patient declined Pneumococcal Vaccine: 06/22/24 Flu Vaccine not done: medical reason Declined TDap/Td: 06/22/24 Coding Level of Care Code Est Pt Level 5 (27327) Complex EM visit Add On G2211 Diagnoses SI (sacroiliac) joint dysfunction M53.3 nursing home (current) use of systemic steroids Z79.52 Mast cell disease D47.09 Screening for colon cancer Z12.11 Encounter for screening mammogram for malignant neoplasm of breast Z12.31 Breast cancer screening modality: mammogram Osteopenia, unspecified location M85.80 Osteopenia location: unspecified Laboratory examination ordered as part of a routine general medical examination Z00.00 NALINI (generalized anxiety disorder) F41.1 Mild episode of recurrent major depressive disorder F33.0 Major depression episode severity: mild Class 1 obesity with alveolar hypoventilation, serious comorbidity, and body mass index (BMI) of 31.0 to 31.9 in adult E66.2; Z68.31 Serious obesity comorbidity presence: with serious comorbidity Moderate mixed hyperlipidemia not requiring statin therapy E78.2 Hyperlipidemia type: moderate mixed hyperlipidemia not requiring statin therapy Vaccine contraindicated Z28.09 Mild cognitive impairment with memory loss G31.84 Additional Codes NALINI-7 Assessment Billing - NALINI-7 Assessment Tool: NALINI-7 Assessment 78018 ([id number])
[2024-06-22 09:22] VITALS: BP 118/66; PULSE 101; RESP 13; O2SAT 98; BMI 31.3
[2024-06-22 10:25] VITALS: PULSE 88
== END 2024-06-22 10:19 | disposition home or self-care (01) ==
PROVIDERS: PCP Family Medicine; Visit Provider Nurse Practitioner Family
DX: M53.3 Sacrococcygeal disorders, not elsewhere classified (principal); F33.0 Major depressive disorder, recurrent, mild; E66.2 Morbid (severe) obesity with alveolar hypoventilation; Z68.31 Body mass index [BMI] 31.0-31.9, adult; Z79.52 Long term (current) use of systemic steroids; D47.09 Other mast cell neoplasms of uncertain behavior; Z12.11 Encounter for screening for malignant neoplasm of colon; Z12.31 Encounter for screening mammogram for malignant neoplasm of breast; M85.80 Other specified disorders of bone density and structure, unspecified site; F41.1 Generalized anxiety disorder; Z28.09 Immunization not carried out because of other contraindication

== ENCOUNTER → 2024-06-22 09:17 | Outpatient (BNVA) | payer OTHER, SELFPAY | PROVIDERS: PCP Family Medicine; Visit Provider Nurse Practitioner Family | DX: M53.3 Sacrococcygeal disorders, not elsewhere classified (principal); D47.09 Other mast cell neoplasms of uncertain behavior; M85.80 Other specified disorders of bone density and structure, unspecified site; F41.1 Generalized anxiety disorder; F33.0 Major depressive disorder, recurrent, mild; E66.2 Morbid (severe) obesity with alveolar hypoventilation; Z68.31 Body mass index [BMI] 31.0-31.9, adult; E78.2 Mixed hyperlipidemia; G31.84 Mild cognitive impairment of uncertain or unknown etiology; Z28.09 Immunization not carried out because of other contraindication; Z79.52 Long term (current) use of systemic steroids | CPT/HCPCS: 96127; 99212 ==

== ENCOUNTER 2024-06-22 11:01 | Outpatient (REF) | payer OTHER, SELFPAY ==
--- NOTE | ~2024-06-22 | XR_ITS ---
EXAMINATION: XR HIP, RIGHT CLINICAL INFORMATION: Right hip pain COMPARISON: None available. TECHNIQUE: Two views of the right hip, frontal x-ray of pelvis. FINDINGS: BONES: Bony structures are intact. There is prominent pubic symphysis bone gap, measuring 6.4 mm. There is no focal bone destruction or periosteal reaction seen. JOINTS: Alignment of joints is normal. SOFT TISSUE: Soft tissue is normal. No radiopaque foreign body or abnormal air collection is seen. XR/XR hip RT w PEL1V IMPRESSION: 1. Normal x-rays of right hip. No fracture or dislocation or signs of osteomyelitis are found. 2. Findings are suggestive of pubic diastases. Electronically signed by: Anita New MD 06/22/2024 04:37 PM EDT
--- NOTE | ~2024-06-22 | XR_ITS ---
EXAMINATION: XR SACROILIAC JOINTS CLINICAL INFORMATION: Sacral coccygeal disorder COMPARISON: None available. TECHNIQUE: 3 views of the sacroiliac joints FINDINGS: Bones and soft tissues are normal. No fracture. Alignment is anatomic. Sacroiliac joint spaces are well-maintained without erosions or surrounding sclerosis. XR/XR sacroiliac joint min 3V IMPRESSION: Normal sacroiliac joints. Electronically signed by: Anita New MD 06/22/2024 04:38 PM EDT
== END 2024-06-22 11:02 | disposition home or self-care (01) ==
LOC: HO.HMGCX 11:01
PROVIDERS: PCP Nurse Practitioner Family; Visit Provider Nurse Practitioner Family
DX: M53.3 Sacrococcygeal disorders, not elsewhere classified (principal); M25.551 Pain in right hip; Z79.52 Long term (current) use of systemic steroids
CPT/HCPCS: 72202; 73502

== ENCOUNTER 2024-08-14 11:00 | Outpatient (RCR) | payer OTHER, SELFPAY ==
--- NOTE | 2024-08-02 15:28 | MHC.PT.EP ---
[facility] [place] [facility] [place] [facility] [place] [facility] [address] Laron Quintana [address] [phone] F: [phone] F: [phone] F: [phone] F: [phone] Physical Therapy Plan of Care Date of Evaluation: 08/02/24 Date of Surgery: Diagnosis: Saccroccygeal disorders, not elsewhere classified date of service 06/22/24 signed by DARIO Bush Assessment: Pt is a 44 y/o female PMH significant for NALINI, MDD, mast cell activation hyperlipidemia, asthma, cognitive dysfunction likely to POTS and mast cell activation syndrome MCAS, pancreatitis (med induced), obesity, referred to PT from PCP Rosa Haney for treatment of Saccroccyogeal disorders, not elsewhere classified date of service 06/22/24 signed by DARIO Bush following history of ongoing back pain since fall in November 2023 (never sought care for injury after this). Pt reports history of R sided back pain for years after history of childbirth (>20 years ago). Recent numerous falls related to POTS syndrome (states is awaiting reeval work-up for this but had lapse in with care due to insurance changes- sees specialist in [place], states her MCAS is stable as this time). Reports hx adrenal failure. She expresses worsening sx getting up from seated positions, went to ER at [facility] on 07/26/24, states was prescribed medrol and tylenol. Pt expressing at that time was experiencing radiating sx to lateral thigh hip/leg. Pt exhibits signs and sx consistent with SI dysfunction/ lumbar instability/ c/o some radicular radiating sx down R LE. She has tight hip flexors R>L, tight ITB R>L, weak glute/abductors, expressing R sided lumbar sx at times. Pt would benefit from attending skilled PT services at a frequency of 2x/week x 6 weeks to address impairments, implement HEP, and educate re: self care management for daily activities. 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 Pt currently living in apartment with grown daughter, states her daughter moved back in with her due to sx and concern for safety. Pt states has not been driving much for the past year or so which she states is due to cognition concerns. Pt utilized Lyft transportation for visit today. Post initial evaluation she was started with self-care education for change in position (avoidance of prolonged flexed positions (encouraged to trial prone lying/ prone on forearms), prone quad stretch with strap. Positive response reported. Pt very motivated. Pt verbalized some reduction in sx following session this date. Pt will be seen in [place] office twice weekly. Frequency and Duration: The patient will be seen 2x/week x 4-6 weeks Short Term Goals: 1. Initiate home exercise program. 2. Pt will demonstrate good log roll technique for bed mobility to reduce stress on lower back/SI. 3. Strengthen hip abductors 4+/5 R. 4. Strengthen hip ext 4/5 R. 5. Improve hip flexor flexibility by 25%. Jail Goals: 1. I HEP. 2. Improve Oswestry disability index by 25%. 3. Demonstrate good functional squat technique for ADLS/IADLS. 4. Centralize radicular sx to height of L/S. 5. Pt will express LBP>SI sx no >2/10 with ADLS/IADLS. Treatment Plan: Modalities to reduce pain, spasms and effusion. Manual therapy to restore motion and function. Therapeutic exercise to improve strength and flexibility. Neuromuscular re-education for posture and balance. Therapeutic activities to return to functional activities of daily living. Electronically signed by: Lea Ramirez, PT, DPT Please sign and return to therapist. Thank you for your referral.
== END 2024-10-19 08:52 | disposition home or self-care (01) ==
LOC: HO.PTWFD 11:00
PROVIDERS: PCP Nurse Practitioner Family; Visit Provider Nurse Practitioner Family
DX: M53.3 Sacrococcygeal disorders, not elsewhere classified (principal)
CPT/HCPCS: 97110; 97162; 97535

== ENCOUNTER 2024-08-31 09:23 | Outpatient (REF) | payer OTHER, SELFPAY ==
--- NOTE | ~2024-08-31 | MM_ITS ---
EXAMINATION: BONE DENSITOMETRY CLINICAL INDICATION: Screening. COMPARISON: This is the patient's baseline examination. TECHNIQUE: Using a [employer] DXA System (software version: 13.1) manufactured by [employer], dual-energy x-ray absorptiometry was performed of the lumbar spine and left hip. The images are of good technical quality. Based on ISCD (International Society for Clinical Densitometry) standards of reporting, Z-scores instead of T-scores are reported in this premenopausal woman. Summary results are attached. FINDINGS: LEFT FEMUR, NECK: BMD 0.944 g/cm2, T-score -0.7, Z-score -0.4, Z-score within expected range for age. LEFT FEMUR, TOTAL: BMD 1.031 g/cm2, T-score 0.2, Z-score 0.1, Z-score within expected range for age. AP SPINE L1-L4: BMD 1.250 g/cm2, T-score 0.6, Z-score 0.2, Z-score within expected range for age. IDENTIFIED RISK FACTORS: Recurrent falls, glucocorticoids (chronic). HISTORY OF FRACTURE: None listed. MEDICATIONS: Vitamin D. MM/XR DEXA axial skeleton IMPRESSION: 1. DIAGNOSIS: Based on the lowest Z-score value of -0.4 in the femoral neck, the patient's bone density is within the expected range for age. 2. 10-YEAR FRACTURE RISK PREDICTION, FRAX: Not performed in this perimenopausal patient. 3. Treatment Recommendations: NOF guidelines recommend consideration for treatment in postmenopausal women and men age 50 and older presenting with the following: -A hip or vertebral (clinical or morphometric) fracture. -T-score less than or equal to -2.5 at the femoral neck or spine after appropriate evaluation to exclude secondary causes. -Low bone mass at the hip or spine and a 10-year fracture probability by FRAX of greater than or equal to 3% for hip fracture or greater than or equal to 20% for major osteoporotic fracture based on the [place] adapted WHO algorithm. 4. Other Recommendations: All treatment decisions require clinical judgment and consideration of individual patient factors, including patient preferences, comorbidities, previous drug use, risk factors not captured in the FRAX model (e.g. frailty, falls, vitamin D deficiency, increased bone turnover, interval significant decline in bone density) and possible under or overestimation of fracture risk by FRAX. FUTURE SCAN RECOMMENDATION: People with diagnosed cases of osteoporosis or at high risk for fracture should have regular bone mineral density tests. For patients eligible for Medicare, routine testing is allowed once every 2 years. The testing frequency can be increased to one year for patients who have rapidly progressing disease, those who are receiving or discontinuing medical therapy to restore bone mass, or have additional risk factors. Electronically signed by: Jewell Stephenson MD 08/31/2024 02:54 PM [facility] [place]
--- NOTE | ~2024-08-31 | MM_ITS ---
EXAMINATION: MM SCREENING DIGITAL BREAST TOMOSYNTHESIS, BILATERAL CLINICAL INFORMATION: Screening. Asymptomatic. COMPARISON: Mammography: Comparison is made with available priors TECHNIQUE: Digital breast mammography with tomosynthesis is performed in both the craniocaudal and mediolateral oblique views along with computer-aided detection (CAD). FINDINGS: There are scattered areas of fibroglandular density (ACR BI-RADS breast composition Category b). There are no significant masses, abnormal calcifications, or other abnormalities. MM/MM tomosynthesis screening BI IMPRESSION: No mammographic evidence of malignancy. ASSESSMENT: BI-RADS BI-RADS 1 - Negative RECOMMENDATION: Routine annual mammography screening. 1 year F/U This examination should not preclude the clinical evaluation of a suspicious palpable abnormality. This patient's information was entered into a reminder system with a target due date for their next mammogram. Electronically signed by: Destiny Nathan DO 09/06/2024 10:11 AM MAG
--- OUTSIDE RECORDS SUMMARY | 2024-09-05 06:56 | XMS_ITS | Patient Health Record ---
Author Organization [facility] Address [address] [place] [address] Care Team Providers Care Commander Police Reserves Name Role Phone Esteban Horton Primary Care Provider Armando Kimbrough Jr Unavailable [phone] ALLERGIES Allergen (clinical drug ingredient) Drug/Non Drug [...] puffs Inhalation Once a day Active pyRIDostigmine [place] ER 180 MG 1 tablet Orally Once [...] Code Notes Problem Colitis (K52.9) Active confirmed 430335 04 Problem Rectal bleeding (K62.5) Active confirmed 55892330 Problem Diverticulitis (K57.92) Active confirmed 855102672 Problem Epigastric pain (R10.13) Active confirmed 02788846 Problem Right upper quadrant abdominal pain (R10.11) Active confirmed 800349762 Problem Elevated lipase (R74.8) Active confirmed 038531537 Encounters Encounter Location Date Provider Diagnosis [facility] [address] [place] [address] 08/28/2024 Armando Simon Jr PLAN OF TREATMENT Pending Test Test Name Order Date LIVER PROFILE 12/06/2022 LIPASE 12/06/2022 CBC w/o DIFF 12/06/2022 Future Test Test Name Order Date COLONOSCOPY 07/07/2017 Next Appt Details Provider Name:Armando hope Jr, 10/08/2024 10:00:00 AM, [address], [address], [place], [address], Insurance Providers Payer Name Payer Address Payer Phone Subscriber Number Group Number Insured Name Patient Relationship to Insured Coverage Start Date Coverage End Date [facility] [address] [id number] JAKE GODWIN Self - patient is the insured MEDICAL (GENERAL) HISTORY Medical History History ICD Code asthma Colonoscopy 09/09/17 normal including bi opsies Autoimmune disorder, mast cell related Elevated lipase Breathing problems Surgical History Surgery Date(Month/Year) tonsillectomy 1997 cholecystectomy 2000 appendectomy 2016
--- OUTSIDE RECORDS SUMMARY | 2024-09-05 06:56 | XMS_ITS ---
Author Organization [facility] Address [address] [place] [address] Care Team Providers Care Bakery Products Checker Name Role Phone Esteban Horton Primary Care Provider Unavailab tracy Simon Jr, Armando Johnson [phone] REASON FOR VISIT New insurance Encounters Encounter Location Date Provider Diagnosis [facility] [address] [place] [address] 08/28/2024 Armando Simon Jr PLAN OF TREATMENT Next Appt Details Provider Name:Armando hope Jr, 10/08/2024 10:00:00 AM, [address], [address], [place], [address],
--- OUTSIDE RECORDS SUMMARY | 2024-09-05 06:56 | XMS_ITS ---
Author Organization [facility] Address [address] [place] [address] Care Team Providers Care Deputy Controller Name Role Phone Esteban Horton Primary Care Provider Unavailab Armando Nolasco Jr [phone] REASON FOR VISIT new insurance? Encounters Encounter Location Date Provider Diagnosis [facility] [address] [place] [address] 04/21/2023 Armando Simon Jr PLAN OF TREATMENT Next Appt Details Provider Name:Armando hope Jr, 10/08/2024 10:00:00 AM, [address], [address], [place], [address],
--- OUTSIDE RECORDS SUMMARY | 2024-09-05 06:56 | XMS_ITS ---
Author Organization [facility] Address [address] [place] [address] Care Team Providers Care Junior Administrative Assistant Name Role Phone Esteban Horton Primary Care Provider Unavailab Armando Nolasco Jr [phone] REASON FOR VISIT pancreatitis Encounters Encounter Location Date Provider Diagnosis [facility] [address] [place] [address] 06/08/2023 Armando Simon Jr PLAN OF TREATMENT Next Appt Details Provider Name:Armando hope Jr, 10/08/2024 10:00:00 AM, [address], [address], [place], [address],
== END 2024-08-31 09:24 | disposition home or self-care (01) ==
LOC: HO.MAMMO 09:23
PROVIDERS: PCP Nurse Practitioner Family; Visit Provider Nurse Practitioner Family
DX: Z12.31 Encounter for screening mammogram for malignant neoplasm of breast (principal); Z13.820 Encounter for screening for osteoporosis; M85.80 Other specified disorders of bone density and structure, unspecified site; Z79.52 Long term (current) use of systemic steroids
CPT/HCPCS: 77063; 77067; 77080

== ENCOUNTER → 2024-08-31 09:45 | Outpatient (BNV) | payer OTHER, SELFPAY | PROVIDERS: PCP Nurse Practitioner Family; Visit Provider Internal Medicine | DX: Z12.31 Encounter for screening mammogram for malignant neoplasm of breast (principal) | CPT/HCPCS: 77063; 77067 ==

== ENCOUNTER 2024-10-12 08:18 | Outpatient (REF) | payer OTHER, SELFPAY ==
[2024-10-12 11:38] LABS: Hematocrit 39.1 % (37.0-47.0); Hemoglobin 12.9 g/dl (12.0-16.0); Mean Corpuscular Hemoglobin 28.7 pg (27.0-33.0); Mean Corpuscular Volume 87.1 fL (80.0-98.0); Platelet Count 292 X10*3/uL (160-400); Red Blood Count 4.49 X10*6/uL (4.20-5.50); Red Cell Distribution Width 14.6 % (11.0-16.0); White Blood Count 6.5 X10*3/uL (4.8-10.8)
[2024-10-12 11:47] LABS: Estimated Average Glucose 108 mg/dL; Hemoglobin A1C 118.7069 umol/L; Hemoglobin A1c % 5.4 % (<6.0); Total Hemoglobin (HGBA1C) 3371.3925 umol/L
[2024-10-12 12:15] LABS: Folate 10.4 ng/mL (> or = 4.0); Vitamin B12 881 pg/mL (200-900)
[2024-10-12 12:17] LABS: Alanine Aminotransferase 16 U/L (0-31); Albumin Level 3.9 g/dL (3.5-5.0); Alkaline Phosphatase 60 U/L (39-117); Anion Gap 7 (12-20); Aspartate Amino Transferase 22 U/L (5-31); Bilirubin Total 0.2 mg/dL (0.0-1.0); Blood Urea Nitrogen 16 mg/dL (9-16); Calcium 8.6 mg/dL (8.4-10.2); Carbon Dioxide 25 mmol/L (22-29); Chloride 110 mmol/L (96-108); Cholesterol 209 mg/dL (<200); Estimated Glomerular Filt Rate > 60; Glucose Fasting 98 mg/dL (60-99); HDL Cholesterol 49 mg/dL (>40); LDL Cholesterol Calculated 143 mg/dL (<100); Potassium 4.4 mmol/L (3.3-5.1); Sodium 138 mmol/L (135-145); TSH reflex Free T4 2.03 uIU/mL (0.32-4.0); Total Protein 7.1 g/dL (6.5-8.0); Triglycerides 88 mg/dL (<150); Vitamin D 25-OH Total 57.5 ng/mL (>30)
== END 2024-10-12 08:19 | disposition home or self-care (01) ==
LOC: HO.WFDLDS 08:18
PROVIDERS: Visit Provider Nurse Practitioner Family
DX: Z00.00 Encounter for general adult medical examination without abnormal findings (principal); M85.80 Other specified disorders of bone density and structure, unspecified site; Z13.1 Encounter for screening for diabetes mellitus
CPT/HCPCS: 36415; 80053; 80061; 82306; 82607; 82746; 83036; 84443; 85027

== ENCOUNTER 2024-10-19 10:11 | Outpatient (AMB) | payer OTHER, SELFPAY ==
--- NOTE | 2024-10-19 10:27 | A.OFFPC_ITS ---
Vital Signs 10/19/24 10:29 Height 5 ft 5 in Weight 191 lb BMI 31.8 BP 98/68 Blood Pressure Location Lt brachial Position Sitting Respiration 12 Pulse 87 Pulse Source Pulse Oximeter Temp 97.5 F Temp Source Oral Pulse Oximetry (%) 98 Oxygen Delivery Method Simple Mask Intake Visit Reasons: cpe Intake Note: annual physical [employer] Required: No Allergies nitrofurantoin [From MACROBID] Allergy (Severe, Verified 10/19/24 10:57) THROAT SWELLING, DIFF BREATHING, HIVES fluconazole [From DIFLUCAN] Allergy (Unknown, Verified 10/19/24 10:57) HIVES Medication List - Last Reconciled 10/19/24 by Rosa Haney, GUT DROPPER- albuterol sulfate mg inhalation Q4H PRN albuterol sulfate 90 mcg/actuation 2 puffs inhalation Q4-6H PRN azelastine 1 spray intranasal BID budesonide-formoterol 160-4.5 mcg/actuation 2 puffs inhalation BID citalopram 40 mg PO DAILY clonazepam 1 mg (2 x 0.5 mg) PO DAILY 30 days levothyroxine 50 mcg PO QAM 90 days montelukast 10 mg PO DAILY 30 days omalizumab (Xolair) mg subcut pyridostigmine bromide ER 180 mg PO TID tiotropium bromide 1.25 mcg/actuation (Spiriva Respimat) 2 puffs inhalation DAILY valacyclovir (Valtrex) 500 mg PO Q12H 10 days Tobacco use date assessed: 10/19/24 Dental Screening Dental Screen Date: 10/19/24 Did you have a dental visit in the last 12 months?: Yes Did you have a dental problem in the last 6 months where you did not have access to dental care?: No Was dental information given to patient?: Patient has dentist HPI HPI Comments History of Present Illness Details 44 y/o F with NALINI, MDD, mast cell activ ation syndrome, hyperlipidemia, asthma, cognitive dysfunction likely secondary to POTS and mast cell activation syndrome MCAS, pancreatitis (med induced), obesity s/p appendectomy, cholecystectomy, tonsillectomy Health Maintenance: Pap UTD Colon Colon 11/[address] Jaci RUIZ 08/31/24 WNL, 2021 showed osteopenia, advised to take Viactiv chew Ca+D Mammo 08/31/24 WNL Tdap 11/22/13, COVID vaccines contraindicated given MAST cell. Specialists: Dr Nation [facility] - treats asthma and mast cell locally Dr Oseas Khanna [facility] Autonomic Dr Jeffry Vasquez [facility] [employer]ER[employer] Pulm Dr Ventura, michaelle PRN Endocrine [facility], no longer ff'd Counselor & Prescriber Neuropsych evaluation from [facility] neurology in October 2023. The patient is a 44-year-old female presenting for her annual physical exam. She has a comprehensive medical history including generalized anxiety disorder, major depressive disorder well-managed by bupropion, hyperlipidemia, asthma, postural orthostatic tachycardia syndrome (POTS), cognitive dysfunction, and a history of pancreatitis believed to be induced by a COVID vaccine-related injury. Her asthma and hyperlipidemia are ongoing concerns. She has reported improvements in her depressive symptoms with bupropion, although initial side effects included gastrointestinal issues. Her current concern includes long COVID symptoms, particularly post-exertional malaise. This presents as significant fatigue and muscle heaviness following minimal exertion. Her cognitive dysfunction symptoms are concerning for her; she experiences daily issues with concentration but denies depression-related fatigue or hopelessness. The patient mentions consistent anxiety, possibly exacerbated by her ongoing health issues. She has a history of mast cell activation syndrome, requiring strict avoidance of alcohol due to allergic reactions. The patient follows up regularly with suggested wellness screenings, including mammograms and bone density testing, which have returned normal results. Social History - The patient abstains from alcohol due to mast cell activation syndrome-related allergies. - she resides with her mother and childr en. - Attempts to maintain wellness through activities like meditation and mindfulness, recommended by her therapist. Exam: GENERAL: WELL DEVELOPED, WELL NOURISHED, IN NO ACUTE DISTRESS. APPEARS STATED AGE. HEAD: NORMOCEPHALIC, ATRAUMATIC. EYES: PUPILS ARE EQUAL, ROUND AND REACTIVE TO LIGHT AND ACCOMMODATION. CONJUNCTIVAE ARE CLEAR. VISION GROSSLY NORMAL. EARS: TMS CLEAR AU, EACS WNL NOSE: PATENT, WITHOUT DISCHARGE. MOUTH: THERE ARE NO ULCERS OR LESIONS NOTED. NO INFLAMMATION, NO POST NASAL DRIP, NO PLAQUES NOR EXUDATES. NECK: SUPPLE, NO ADENOPATHY OR THYROMEGALY. LUNGS: CLEAR TO AUSCULTATION BILATERALLY. NO RALES, RHONCHI OR WHEEZE NOTED. GOOD AIR FLOW IN ALL TIRADO. HEART: REGULAR RATE AND RHYTHM. NO MURMURS, CLICK, RUBS OR GALLOPS ARE NOTED. ABDOMEN: BOWEL SOUNDS PRESENT IN ALL QUADRANTS. THE ABDOMEN IS SOFT, NONTENDER, WITH NO MASSES OR ORGANOMEGALY NOTED. NO HERNIAS ARE NOTED. MUSCULOSKELETAL: JOINTS ARE NONTENDER, WITHOUT SWELLING, REDNESS, OR EFFUSIONS. RANGE OF MOTION IS OBSERVED TO BE NORMAL. PULSES: PERIPHERAL PULSES ARE EQUAL AND PALPABLE BILATERALLY. EXTREMITIES: NO CLUBBING, CYANOSIS NOR EDEMA IS NOTED. NEUROLOGIC: GAIT AND STATION NORMAL. CRANIAL NERVES 2-12 INTACT. MOTOR STRENGTH GROSSLY SYMMETRICAL AND INTACT. NO SENSORY LOSS. BALANCE NORMAL. SKIN: NO RASHES, ULCERS, OR LESIONS NOTED. TURGOR IS GOOD. SKIN COLOR IS GOOD. HAIR AND NAILS ARE WITHOUT ABNORMALITIES. SCATTERED MOLES ON EXT. PSYCH: NORMAL EYE CONTACT, AFFECT AND MOOD APPROPRIATE, AND NORMAL INTERACTIONS. PATIENT IS ALERT AND APPROPRIATE TO CONTEXT. Results Labs 10/12/24 WNL except elevated cholesterol - Past mammogram and bone density tests were normal with no abnormalities. Plan - Continue bupropion for major depressiv e disorder; monitor effects on anxiety and adjust as needed. - Referral to dermatology for routine sk in examination due to multiple skin lesions. - Continue current asthma management; re view medication effectiveness periodically. - Reinforce lifestyle modifications to m anage hyperlipidemia, including reducing soda intake and considering dietary fiber additions. - Manage long COVID symptoms with suppor tive care; encourage engagement in COVID long-haul resources. - Follow-up set in one year for fasting lab work to monitor cholesterol levels. - Continue engagement in mental health t herapy, noting the upcoming switch to a new therapist due to insurance requirements. - Cont care w/ care team - RTO 1 year CPE sooner PRN Patient was informed and verbally consented to the use of an ambient scribe for clinic note documentation during this visit. Discussion Notes During our visit, we discussed the patient's multi-faceted health concerns extensively. I explained potential management strategies for her persistent anxiety, including ongoing use of bupropion, known to have some efficacy in treating anxiety symptoms. I recommended the reduction of soda intake to address her slightly elevated cholesterol, stressing the importance of lifestyle adjustments. A dermatology referral was made to further assess the multiple skin lesions noted. We discussed long COVID, its variability among patients, and the importance of support groups and specialized clinics for management. I encouraged the patient to maintain regular communication with her mental health provider, especially during the transition to a new therapist. Also, we reviewed past screening results and highlighted the importance of continued adherence to recommended preventative care. Patient Instructions - Continue bupropion as prescribed; charles tor mood and anxiety levels. - Schedule dermatology appointment for s kin evaluation. - Reduce soda intake; consider adding di etary fiber like flaxseed. - Continue asthma management and monitor symptom control. - Engage with [employer] for a dditional support. - Follow up in one year for fasting labs and general check-up. - Consult with new mental health therapi st for ongoing support. - Maintain regular physical activity and meditation routines for wellness. 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 1. Little interest or pleasure in doing things: not at all 2. Feeling down, depressed, or hopeless: not at all 3. Trouble falling or staying asleep, or sleeping too much: not at all 4. Feeling tired or having little energy: not at all 5. Poor appetite or overeating: not at all 6. Feeling bad about yourself - or that you are a failure or have let yourself or your family down: not at all 7. Trouble concentrating on things, such as reading the newspaper or watching television: not at all 8. Moving or speaking so slowly that other people could have noticed. Or the opposite - being so fidgety or restless that you have been moving around a lot more than usual: not at all 9. Thoughts that you would be better off or of hurting yourself in some way: not at all Total score: 0 Depression Screening Interpretation: Negative Depression Screening Done: Yes 16374 - PHQ-9 Billing: Yes Source: Developed by Drs. Arthur Zamora, Margie Gunn, Mello Lewis and colleagues, with an educational kyra from [employer]. Thrive Questionnaire Date Thrive assessed: 10/19/24 I am a: Patient What is your living situation today?: I have a steady place to live Within the past 12 months, did the food you bought not last and you didn't have the money to get more?: Never true Within the past 12 months, did you worry whether your food would run out before you got money to buy more?: Never true Do you have trouble paying for medicines?: No Do you have trouble getting transportation to medical appointments?: No Do you have trouble paying your heating and electricity bill?: No Do you have trouble taking care of your child, family member or friend?: No Do you have trouble with day-to-day activities such as bathing, preparing meals, shopping, managing finances, etc.?: No Are you currently unemployed and looking for a job?: No Are you interested in more education?: No Please select the resources that you would like help with: None Currently or been in a relationship where the following occur: No concerns reported THRIVE Score: 0 AUDIT C Alcohol Use Questionnaire (AUDIT-C) 1. How often do you have a drink containing alcohol?: Never 3. How often do you have six or more drinks on one occasion?: Never Total Score: 0 Score Reviewed/Action Taken: Yes NALINI-7 AMB Questionnaire NALINI-7 Date NALINI - 7 assessed: 10/19/24 Feeling nervous, anxious, or on edge: 3 = Nearly every day Not being able to stop or control worryin = Nearly every day Worrying too much about different things: 3 = Nearly every day Trouble relaxin = Nearly every day Being so restless that it is hard to sit still: 3 = Nearly every day Becoming easily annoyed or irritable: 3 = Nearly every day Feeling afraid as if something awful might happen: 0 = Not at all Total NALINI-7 score (0-4 normal; 5-9 mild; 10-14 moderate; 15-21 severe): 18 Source: Developed by Drs. Arthur Zamora, Margie Gunn, Mello Lewis and colleagues, with an educational kyra from [employer]. NALINI-7 Assessment Billing NALINI-7 Assessment Tool: NALINI-7 Assessment 56844 Physical exam (Primary Care) Vital Signs: Last Vital Signs Temp 97.5 F 10/19/24 10:29 Pulse 87 10/19/24 10:29 Resp 12 10/19/24 10:29 BP 98/68 10/19/24 10:29 Pulse Ox 98 10/19/24 10:29 Oxygen Delivery Method Simple Mask 10/19/24 10:29 BMI result Body Mass Index 31.8 BMI Assessment/Plan discussion: High BMI High, discussed plan: lifestyle Tobacco/Smoking Status: Tobacco use Status Tobacco use date assessed 10/19/24 10/19/24 10:31 Patient Tobacco Use Status Former Tobacco user 10/19/24 10:31 Tobacco use type Cigarette 10/19/24 10:31 e-Cigarette/Vaping Use Never Used 10/19/24 10:31 PHQ-9: PHQ-9 Score PHQ-9: Total score 0 10/19/24 11:09 Depression Screening Interpretation: Negative Thrive Assessment: Date of Thrive Assessment Date Thrive assessed 10/19/24 10/19/24 10:31 Currently or been in a relationship where the following occur: No concerns reported Coding Level of Care Code Est Pt Prev Care 40-64y(89752) Diagnoses Atypical mole D22.9 Moderate mixed hyperlipidemia not requiring statin therapy E78.2 Hyperlipidemia type: moderate mixed hyperlipidemia not requiring statin therapy Mild intermittent asthma without complication J45.20 Asthma severity: mild Asthma persistence: intermittent Asthma complication type: uncomplicated Class 1 obesity with alveolar hypoventilation, serious comorbidity, and body m ass index (BMI) of 31.0 to 31.9 in adult E66.2; Z68.31 Serious obesity comorbidity presence: with serious comorbidity NALINI (generalized anxiety disorder) F41.1 Mast cell disease D47.09 Mild episode of recurrent major depressive disorder F33.0 Major depression episode severity: mild Mild cognitive impairment with memory loss G31.84 Osteopenia, unspecified location M85.80 Osteopenia location: unspecified Vaccine contraindicated Z28.09 Additional Codes NALINI-7 Assessment Billing - NALINI-7 Assessment Tool: NALINI-7 Assessment 71434 ([id number]) PHQ-9 - 48399 - PHQ-9 Billing: Yes ([id number]) Assessment & Plan Assessment & Plan (1) Atypical mole: Code(s): D22.9 - Melanocytic nevi, unspecified Category: Medical (2) Hyperlipidemia: Code(s): E78.5 - Hyperlipidemia, unspecified Category: Medical Qualifiers: Hyperlipidemia type: moderate mixed hyperlipidemia not requiring statin therapy Qualified Code(s): E78.2 - Mixed hyperlipidemia (3) Asthma: Code(s): J45.909 - Unspecified asthma, uncomplicated Category: Medical Qualifiers: Asthma severity: mild Asthma persistence: intermittent Asthma complication type: uncomplicated Qualified Code(s): J45.20 - Mild intermittent asthma, uncomplicated (4) Class 1 obesity with alveolar hypoventilation and body mass index (BMI) of 31.0 to 31.9 in adult: Comment: with HLD and Mast cell activation Code(s): E66.2 - Morbid (severe) obesity with alveolar hypoventilation; Z68.31 - Body mass index [BMI] 31.0-31.9, adult Category: Medical Qualifiers: Serious obesity comorbidity presence: with serious comorbidity Qualified Code(s): E66.2 - Morbid (severe) obesity with alveolar hypoventilation; Z68.31 - Body mass index [BMI] 31.0-31.9, adult (5) NALINI (generalized anxiety disorder): Code(s): F41.1 - Generalized anxiety disorder Category: Medical (6) Mast cell disease: Code(s): D47.09 - Other mast cell neoplasms of uncertain behavior Category: Medical (7) MDD (major depressive disorder), recurrent episode: Code(s): F33.9 - Major depressive disorder, recurrent, unspecified Category: Medical Qualifiers: Major depression episode severity: mild Qualified Code(s): F33.0 - Ma lisseth depressive disorder, recurrent, mild (8) Mild cognitive impairment with memory loss: Comment: s/t MAST cell, Neuropsych consult [facility] 10/2023 Code(s): G31.84 - Mild cognitive impairment of uncertain or unknown etiology Category: Medical (9) Osteopenia: Code(s): M85.80 - Other specified disorders of bone density and structure, unspecified site Category: Medical Qualifiers: Osteopenia location: unspecified Qualified Code(s): M85.80 - Other specified disorders of bone density and structure, unspecified site (10) Vaccine contraindicated: Code(s): Z28.09 - Immunization not carried out because of other contraindication Category: Medical Plan -.- Orders: Orders Lipid Panel 1 Year E78.2 - Mixed hyperlipidemia Hemoglobin A1c 1 Year E78.2 - Mixed hyperlipidemia Microalbumin, Random (w Creat) 1 Year E78.2 - Mixed hyperlipidemia TSH reflex Free T4 1 Year E78.2 - Mixed hyperlipidemia Vitamin D 25-OH Total 1 Year E78.2 - Mixed hyperlipidemia Comprehensive [place]. Panel Fast 1 Year E78.2 - Mixed hyperlipidemia Vitamin B12 and Folate 1 Year E78.2 - Mixed hyperlipidemia Referrals Dermatology Referral D22.9 - Melanocytic nevi, unspecified Medications: New bupropion HCl XL (Wellbutrin XL) 150 mg PO QAM Patient Instructions: Health screenings for women You should visit your health care provider from time to time, even if you are healthy. The purpose of these visits is to: Screen for medical issues Assess your risk for future medical problems Encourage a healthy lifestyle Update vaccinations and other preventive care services Help you get to know your provider in case of an illness Information Even if you feel fine, you should still see your provider for regular checkups. These visits can help you avoid problems in the future. For example, the only way to find out if you have high blood pressure is to have it checked regularly. High blood sugar and high cholesterol levels also may not have any symptoms in the early stages. A simple blood test can check for these conditions. There are specific times when you should see your provider or receive specific health screenings. The [place] Preventive Services Task Force publishes a list of recommended screenings. Below are screening guidelines for women ages 18 to 39. BLOOD PRESSURE SCREENING Your blood pressure should be checked at least once every 3 to 5 years if: Your blood pressure is in the normal range (top number less than 120 mm Hg and bottom number less than 80 mm Hg) You don't have risk factors for high blood pressure Ask your provider if you need your blood pressure checked more often if: The top number is 120 to 129 mm Hg or the bottom number is 70 to 79 mm Hg You have diabetes, heart disease, kidney problems, are overweight, or have certain other health conditions You have a first-degree relative with high blood pressure You are Black You had high blood pressure during a If the top number is 130 mm Hg or greater or the bottom number is 80 mm Hg or greater, this is considered stage 1 hypertension. Schedule an appointment with your provider to learn how you can reduce your blood pressure. Watch for blood pressure screenings in your area. Ask your provider if you can stop in to have your blood pressure checked. BREAST CANCER SCREENING Experts do not agree about the benefits of breast self-exams in finding breast cancer or saving lives. Talk to your provider about what is best for you. A screening mammogram is not recommended for most women under age 40. Your provider may discuss and recommend mammograms, MRI scans, or ultrasounds if you have an increased risk for breast cancer, such as: A mother or sister who had breast cancer at a young age (most often starting screening earlier than the age the close relative was diagnosed) You carry a high-risk genetic marker CERVICAL CANCER SCREENING Cervical cancer screening should start at age 21 years unless your provider advises otherwise. After the first test: Women ages 21 through 29 should have a Pap test every 3 years. Exoprts do not agree on whether HPV testing is recommended for this age group. Women ages 30 through 65 should be screened with either a Pap test every 3 years or the HPV test every 5 years or both tests every 5 years (called cotesting ). Women who have been treated for precancer (cervical dysplasia) should continue to have Pap tests for 20 years after treatment or until age 65, whichever is longer. If you have had your uterus and cervix removed (total hysterectomy), and you have not been diagnosed with cervical cancer or precancer (high grade cervical neoplasia), you do not need cervical cancer screening. CHOLESTEROL SCREENING Cholesterol screening should begin at: Age 45 for women with no known risk factors for coronary heart disease Age 20 for women with known risk factors for coronary heart disease Repeat cholesterol screening should take place: Every 5 years for women with normal cholesterol levels More often if changes occur in lifestyle (including weight gain and diet) More often if you have diabetes, heart disease, kidney problems, or certain other conditions DIABETES SCREENING You should be screened for diabetes starting at age 35 and then repeated every 3 years if you have no risk factors for diabetes. Screening may need to start earlier and be repeated more often if you have other risk factors for diabetes, such as: You have a first degree relative with diabetes. You are overweight or have obesity. You have high blood pressure, prediabetes, or a history of heart disease. Screening for diabetes should be done if you are planning to become and you are overweight and have other risk factors such as high blood pressure. DENTAL EXAM Go to the dentist once or twice every year for an exam and cleaning. Your dentist will evaluate if you need more frequent visits. EYE EXAM Have an eye exam every 5 to 10 years before age 40. If you have vision problems, have an eye exam every 2 years or more often if recommended by your provider. You should have an eye exam that includes an examination of your retina (back of your eye) at least every year if you have diabetes. IMMUNIZATIONS Commonly needed vaccines include: Flu shot: get one every year. COVID-19 vaccine: ask your provider what is best for you. Tetanus-diphtheria and acellular pertussis (Tdap) vaccine: have one at or after age 19 as one of your tetanus-diphtheria vaccines if you did not receive it as an adolescent. Tetanus-diphtheria: have a booster (or Tdap) every 10 years. Varicella vaccine: receive 2 doses if you never had chickenpox or the varicella vaccine. Hepatitis B vaccine: receive 2, 3, or 4 doses, depending on your exact circumstances. Measles, mumps, and rubella (MMR) vaccine: receive 1 to 2 doses if you are not already immune to MMR. Your provider can tell you if you are immune. Ask your provider about the human papillomavirus (HPV) vaccine if: You have not received the HPV vaccine in the past You have not completed the full vaccine series (you should catch up on this shot) Ask your provider if you should receive other immunizations if you have certain health problems that increase your risk for some diseases such as pneumonia. INFECTIOUS DISEASE SCREENING Women who are sexually active should be screened for chlamydia and gonorrhea up until age 25. Women 25 years and older should be screened for chlamydia and gonorrhea if at high risk. Screening for hepatitis C: All adults ages 18 to 79 should get a one-time test for hepatitis C. people should be screened at every . Screening for human immunodeficiency virus (HIV): All people ages 15 to 65 should get a one-time test for HIV. Depending on your lifestyle and medical history, you may also need to be screened for infections such as syphilis and HIV, as well as other infections. PHYSICAL EXAM All adults should visit their provider from time to time, even if they are healthy. The purpose of these visits is to: Screen for disease Assess your risk of future medical problems Encourage a healthy lifestyle Update your vaccinations and other preventive care services Maintain a relationship with a provider in case of an illness Your height, weight, and BMI should be checked at every exam. During your exam, your provider may ask you about: Depression and anxiety Diet and exercise Alcohol and tobacco use Safety issues, such as using seat belts, smoke detectors, and intimate partner violence Your medicines and risk for interactions SKIN SELF-EXAM Your provider may check your skin for signs of skin cancer, especially if you're at high risk, such as if you: Have had skin cancer before Have close relatives with skin cancer Have a weakened immune system OTHER SCREENING Talk with your provider about colon cancer screening if you have a strong family history of colon cancer or polyps, or if you have had inflammatory bowel disea se or polyps yourself. Routine bone density screening of women under 40 is not recommended.
[2024-10-19 10:29] VITALS: BP 98/68; PULSE 87; RESP 12; TEMP 36.4; O2SAT 98; BMI 31.8
== END 2024-10-19 11:27 | disposition home or self-care (01) ==
PROVIDERS: PCP Nurse Practitioner Family; Visit Provider Nurse Practitioner Family
DX: Z00.00 Encounter for general adult medical examination without abnormal findings (principal); E66.2 Morbid (severe) obesity with alveolar hypoventilation; F33.0 Major depressive disorder, recurrent, mild; Z68.31 Body mass index [BMI] 31.0-31.9, adult; D22.9 Melanocytic nevi, unspecified; E78.2 Mixed hyperlipidemia; J45.20 Mild intermittent asthma, uncomplicated; F41.1 Generalized anxiety disorder; D47.09 Other mast cell neoplasms of uncertain behavior; G31.84 Mild cognitive impairment of uncertain or unknown etiology; M85.80 Other specified disorders of bone density and structure, unspecified site; Z28.09 Immunization not carried out because of other contraindication

== ENCOUNTER → 2024-10-19 10:11 | Outpatient (BNVA) | payer OTHER, SELFPAY | PROVIDERS: PCP Nurse Practitioner Family; Visit Provider Nurse Practitioner Family | DX: D22.9 Melanocytic nevi, unspecified (principal); E78.2 Mixed hyperlipidemia; J45.20 Mild intermittent asthma, uncomplicated; E66.2 Morbid (severe) obesity with alveolar hypoventilation; Z68.31 Body mass index [BMI] 31.0-31.9, adult; F41.1 Generalized anxiety disorder; D47.09 Other mast cell neoplasms of uncertain behavior; F33.0 Major depressive disorder, recurrent, mild; G31.84 Mild cognitive impairment of uncertain or unknown etiology; M85.80 Other specified disorders of bone density and structure, unspecified site; Z28.09 Immunization not carried out because of other contraindication | CPT/HCPCS: 96127 ==

== ENCOUNTER 2025-03-20 13:40 | Outpatient (AMB) | payer OTHER, SELFPAY ==
--- NOTE | 2025-03-20 15:23 | MHC.PC.OV ---
Intake Visit Reasons: review images Allergies nitrofurantoin (From MACROBID) Allergy (Severe, Verified 03/20/25 15:54) THROAT SWELLING, DIFF BREATHING, HIVES fluconazole (From DIFLUCAN) Allergy (Unknown, Verified 03/20/25 15:54) HIVES Medication List - Last Reconciled 03/20/25 by Rosa Haney, [employer]INE SUPER[employer] albuterol sulfate mg inhalation Q4H PRN albuterol sulfate 90 mcg/actuation 2 puffs inhalation Q4-6H PRN azelastine 1 spray intranasal BID budesonide-formoterol 160-4.5 mcg/actuation 2 puffs inhalation BID bupropion HCl XL (Wellbutrin XL) 150 mg PO QAM citalopram 40 mg PO DAILY clonazepam 1 mg (2 x 0.5 mg) PO DAILY 30 days levothyroxine 50 mcg PO QAM 90 days montelukast 10 mg PO DAILY 30 days omalizumab (Xolair) mg subcut pyridostigmine bromide ER 180 mg PO TID tiotropium bromide 1.25 mcg/actuation (Spiriva Respimat) 2 puffs inhalation DAILY valacyclovir (Valtrex) 500 mg PO Q12H 10 days Tobacco use date assessed: 10/19/24 Dental Screening Dental Screen Date: 10/19/24 HPI HPI Comments History of Present Illness Details 45 y/o F with NALINI, MDD, mast cell activation syndrome, hyperlipidemia, asthma, cognitive dysfunction likely secondary to POTS and mast cell activation syndrome [facility], pancreatitis (med induced), obesity s/p appendectomy, cholecystectomy, tonsillectomy Health Maintenance: Pap UTD Colon Colon 11/[address] Beatty DEXCathy 08/31/24 WNL, 2021 showed osteopenia, advised to take Viactiv chew Ca+D Mammo 08/31/24 WNL Tdap 08/17/13, COVID vaccines contraindicated given MAST cell. Specialists: Dr Nation Allergy and immune - treats asthma and mast cell locally Dr Oseas Khanna [facility] Dr Jeffry Vasquez Mast Cell Act Specialists [employer] INSPECTOR Pulm Dr Ventura, michaelle PRN Endocrine [facility], no longer ff'd Counselor & Prescriber Neuropsych evaluation from [facility] neurology in October 2023. History of Present Illness - The patient is a 45-year-old female presenting with concerns about abnormal test results. - Had testing done by Dr Khanna but missed fu appt, not r/s until 10/2025 - Testing indicates small fiber neuropathy;see below for details - Tilt table test negative for POTS. - Mild sympathetic adrenergic dysfunction present. - Reduced cerebral blood flow noted. - Small fiber neuropathy affecting pseudomotor fibers. - Appointment scheduled with Dr. Joce Ding for dysautonomia [facility] 09/17/25 Results see below Assessment and Plan 1. Small Fiber Neuropathy - Confirmed neuropathy affecting pseudomotor fibers. - Suggested rheumatology or autonomic specialist follow-up. - refer to [facility] (she used to work there wonders if she can get in soon) 2. Dysautonomia - Referred to Dr. Joce Ding for further dysautonomia evaluation and management. [facility], 09/17/25 pt self referred there. i placed referrral - No evidence of POTS noted. Telehealth Attestation Documentation accurately reflects the telehealth encounter conducted via phone or video. The patient has been explained that this is an interactive (audio/video) telehealth encounter and what that consists of. The patient understands and wishes to proceed. EpiEP platform was used. Total time spent caring for the patient today was 35 minutes. This includes time spent before the visit reviewing the chart, time spent during the visit, and time spent after the visit on documentation, reviewing laboratory results, diagnostic imaging, medications, performing a medically necessary evaluation, counseling on diagnoses, care coordination, ordering appropriate tests, ordering appropriate medications, review of tests performed by other providers, reporting test results with the patient, communication with other healthcare providers. 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 Arthur Zamora, Margie Gunn, Mello Lewis and colleagues, with an educational kyra from [employer]. Physical exam (Primary Care) Tobacco/Smoking Status: Tobacco use Status Tobacco use date assessed 10/19/24 10/19/24 10:31 Patient Tobacco Use Status Former Tobacco user 10/19/24 10:31 Tobacco use type Cigarette 10/19/24 10:31 e-Cigarette/Vaping Use Never Used 10/19/24 10:31 Thrive Assessment: Date of Thrive Assessment Date Thrive assessed 10/19/24 10/19/24 10:31 Telehealth Telehealth Telehealth Platform: EpiEP Location of provider rendering services: practice address Location of patient: address on file Patient Identification confirmed using: Name, : Yes Telehealth method: voice only Patient verbally consented to treatment: Yes Patient verbally consented to billing insurance company: Yes Patient informed of any privacy concerns related to visit: Yes Minutes spent on Phone/Video with Pt.: 15 Results Reviewed Results Reviewed: Coding Level of Care Code Est Pt Level 4 (11591) Complex EM visit Add On G2211 Diagnoses Small fiber neuropathy G62.9 Mast cell disease D47.09 Autonomic dysfunction G90.9 Assessment & Plan Assessment & Plan (1) Small fiber neuropathy: Code(s): G62.9 - Polyneuropathy, unspecified Category: Medical (2) Mast cell disease: Code(s): D47.09 - Other mast cell neoplasms of uncertain behavior Category: Medical (3) Autonomic dysfunction: Code(s): G90.9 - Disorder of the autonomic nervous system, unspecified Category: Medical Plan . Orders: Referrals Neuromuscular Medicine Referral D47.09 - Other mast cell neoplasms of uncertain behavior, G62.9 - Polyneuropathy, unspecified, G90.9 - Disorder of the autonomic nervous system, unspecified Rheumatology Referral D47.09 - Other mast cell neoplasms of uncertain behavior, G62.9 - Polyneuropathy, unspecified, G90.9 - Disorder of the autonomic nervous system, unspecified
--- OUTSIDE RECORDS SUMMARY | 2025-03-20 16:08 | XMS_ITS | Patient Health Record ---
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,[place], [place],[address], Referred Provider Specialty Gastroentero logy General Notes JosephLesley 025 08:59:23 AM EST > PT NOTIFIED THAT SHE NEEDS TO SWITCH PCP FROM DR ELIZABETH LUEVANO TO [facility] OR DR DE SANTIAGO AND NOTIFY DR BEACH'S OFFICE THAT SHE NEEDS AN INSURANCE REFERRAL Referral Priority Routine Medications Medication SIG (Take, Route, Frequency, Duration) Notes Start Date End Date Status Citalopram Hydrobromide 40 MG 1 tablet Orally Once a day Active Levothyroxine Sodium 50 MCG 1 tablet in the morning on an empty stomach Orally Once a day for 30 day(s) Active Flovent HFA 44 MCG/ACT 2 puffs Inhalatio n Twice a day Active Albuterol Sulfate HFA 108 (90 Base) MCG/ACT 2 puffs as needed Inhalation every 4 hrs Active Xolair 150 MG Subcutaneous Act laurence Symbicort 80-4.5 MCG/ACT 2 puffs Inhalat ion Once a day Active clonazePAM 1 MG Oral for 30 Ac tive buPROPion HCl ER (XL) 150 MG TAKE 1 TABLET BY MOUTH EVERY MORNING Oral for 30 Active pyRIDostigmine Baldwin ER 180 MG 1 tablet Orally Once a day for 30 day(s) Active Spiriva Respimat 2.5 MCG/ACT 2 puffs Inhalation Once a day Active Immunizations Vaccine Route Administration Date Status Comme nts Influenza Unknown 07/10/2018 Administered Influenza Unknown 08/10/2022 Administered Influenza Unknown 10/08/2024 Refused Social History Tobacco Use: Social History Observation Description Date Details (start date - stop date) Former Smoker NA - NA Tobacco Use/Smoking Question Answer Notes Patient is a former smoker Alcohol Screen Question Answer Notes Did you have a drink contain ing alcohol in the past year? Yes How often did you have a dri nk containing alcohol in the past year? Never (0 point) How many drinks did you have on a typical day when you were drinking in the past year? 1 or 2 drinks (0 point) Points 0 Interpretation Negative Problems Problem Type SNOMED Code ICD Code Onset Dates Problem Status W/U Status Risk Notes Problem 33023664 Rectal bleeding (K62.5) Active confirmed Problem 72660249 Epigastric pain (R10.13) Active confirmed Problem 403270693 Diverticulitis (K57.92) Active confirmed Problem 18454698 Colitis (K52.9) Active confirmed Problem 787380174 Right upper quadrant abdominal pain (R10.11) Active confirmed Problem 150947926 Elevated lipase (R74.8) Active confirmed Vital Signs Temperature 97.1 degrees Fahrenheit 10/08/2024 Blood pressure diastolic 00 mm Hg 10/08/2024 Height 65 in 10/08/2024 Blood pressure systolic 000 mm Hg 10/08/2024 Weight 184 lbs 10/08/2024 BMI 30.62 kg/m2 10/08/2024 Encounters Encounter Location Date Provider Diagnosis [facility] [address] [place] [id number] 10/08/2024 Armando Simon Jr Rectal bleeding K62.5 and Colitis K52.9 [facility] [address] [place] [address] 08/28/2024 Armando Simon Jr [facility] [address] [place] [address] 12/12/2024 Armando Simon Jr Assessments Encounter Date Diagnosis (ICD Code) Assessment Notes Treatment Notes Treatment Clinical Notes Section Notes 10/08/2024 Rectal bleeding (ICD-10 - K62.5) Colonoscopy material was printed We discussed colitis today. We discussed rectal bleeding today. She'll have further evaluation with colonoscopy. She is aware of person benefits and agrees to proceed. This will be scheduled at her convenience. 10/08/2024 Colitis (ICD-10 - K52.9) We discussed colitis today. We discussed rectal bleeding today. She'll have further evaluation with colonoscopy. She is aware of person benefits and agrees to proceed. This will be scheduled at her convenience. Plan Of Treatment Pending Test Test Name Order Date LIVER PROFILE 12/06/2022 LIPASE 12/06/2022 CBC w/o DIFF 12/06/2022 Future Test Test Name Order Date COLONOSCOPY 07/07/2017 COLONOSCOPY 10/08/2024 Next Appt Details Provider Name:Armando hope Jr, 04/19/2025 08:10:00 AM, [address] [facility] , [place], [place], [id number], Insurance Providers Payer Name Payer Address Payer Phone Subscriber Number Group Number Insured Name Patient Relationship to Insured Coverage Start Date Coverage End Date [employer] [address] [place] [id number] JAKE GODWIN Self - patient is the insured Medical (General) History Medical History History ICD Code asthma Colonoscopy 09/09/17 normal including bi opsies Autoimmune disorder, mast cell related Elevated lipase,? Medication related Depression SI joint dislocation Surgical History Surgery Date(Month/Year) tonsillectomy 1998 cholecystectomy 2000 appendectomy 2015
== END 2025-03-20 16:04 | disposition home or self-care (01) ==
LOC: HO.HMCFM 13:40
PROVIDERS: PCP Nurse Practitioner Family; Visit Provider Nurse Practitioner Family
DX: G62.9 Polyneuropathy, unspecified (principal); D47.09 Other mast cell neoplasms of uncertain behavior; G90.9 Disorder of the autonomic nervous system, unspecified

== ENCOUNTER → 2025-03-20 13:40 | Outpatient (BNVA) | payer OTHER, SELFPAY | PROVIDERS: PCP Nurse Practitioner Family; Visit Provider Nurse Practitioner Family | DX: Z13.89 Encounter for screening for other disorder (principal) ==